=== PATIENT | female | born 1975 | race African-American/Black ===

== ENCOUNTER 2020-04-21 11:01 | Outpatient (REF) | payer MEDICARE, SELFPAY ==
--- NOTE | 2020-04-21 11:56 | XR_ITS ---
EXAMINATION: XR HIP, LEFT CLINICAL INFORMATION: Left hip pain COMPARISON: None TECHNIQUE: Two views of the left hip. Frontal view of the pelvis. FINDINGS: There is no acute fracture or dislocation. The right hip is well aligned. The left femoral head articulates appropriately with its acetabulum. There is severe superior joint space narrowing with [id number] appearance. Flattening of the femoral head with subchondral sclerosis present. Prominent osteophyte formation. The pelvic rim is intact. The sacroiliac joints and pubic symphysis are intact. The visualized bowel gas pattern is unremarkable. IMPRESSION: Severe degenerative changes of the left hip.
== END 2020-04-21 11:02 | disposition home or self-care (01) ==
LOC: HO.XRAY 11:01
PROVIDERS: PCP Internal Medicine Sports Medicine; Referring Provider Internal Medicine Sports Medicine; Visit Provider Orthopaedic Surgery
DX: M16.12 Unilateral primary osteoarthritis, left hip (principal); M25.552 Pain in left hip
CPT/HCPCS: 73502; 99214

== ENCOUNTER → 2020-06-30 13:14 | Outpatient (BNVA) | payer MEDICARE, MEDICAID, SELFPAY | PROVIDERS: Visit Provider Orthopaedic Surgery | DX: S82.64XA Nondisplaced fracture of lateral malleolus of right fibula, initial encounter for closed fracture (principal); S92.332A Displaced fracture of third metatarsal bone, left foot, initial encounter for closed fracture | CPT/HCPCS: 99202 ==

== ENCOUNTER 2020-08-10 13:27 | Outpatient (REF) | payer MEDICARE, MEDICAID, SELFPAY ==
--- NOTE | 2020-08-10 13:37 | XR_ITS ---
EXAMINATION: XR ANKLE, RIGHT XR FOOT, LEFT CLINICAL INFORMATION: Right ankle and left foot pain. Displaced fracture of left 3rd metatarsal. COMPARISON: None TECHNIQUE: AP, mortise, and lateral views of the right ankle. AP, oblique, and lateral views of the left foot. FINDINGS: RIGHT ANKLE: Subacute/chronic oblique fracture through the distal fibula with minimal displacement. Associated new bone/callus formation. The ankle mortise is maintained. Thin cortical fragment along the medial malleolus, likely representing a nondisplaced fracture fragment. Large dorsal calcaneal enthesophyte with thickening of the distal Achilles, likely indicating chronic tendinopathy. LEFT FOOT: Nondisplaced subacute/chronic-appearing fractures through the proximal metaphyses of the 3rd and 4th metatarsals. Mild new bone/callus formation. No acute fracture or dislocation. Plantar and dorsal calcaneal enthesophytes. XR/XR ankle RT min 3V IMPRESSION: RIGHT ANKLE: Subacute/chronic, oblique fracture through the distal fibula with new bone/callus formation. Probable nondisplaced avulsion fracture at the distal aspect of the medial malleolus. Large dorsal calcaneal spur with thickening of the distal Achilles tendon, indicating chronic tendinopathy. LEFT FOOT: Nondisplaced subacute/chronic-appearing fractures through the proximal metaphyses of the 3rd and 4th metatarsals. Mild new bone/callus formation. Plantar and dorsal calcaneal spurs.
--- NOTE | 2020-08-10 13:37 | XR_ITS ---
EXAMINATION: XR ANKLE, RIGHT XR FOOT, LEFT CLINICAL INFORMATION: Right ankle and left foot pain. Displaced fracture of left 3rd metatarsal. COMPARISON: None TECHNIQUE: AP, mortise, and lateral views of the right ankle. AP, oblique, and lateral views of the left foot. FINDINGS: RIGHT ANKLE: Subacute/chronic oblique fracture through the distal fibula with minimal displacement. Associated new bone/callus formation. The ankle mortise is maintained. Thin cortical fragment along the medial malleolus, likely representing a nondisplaced fracture fragment. Large dorsal calcaneal enthesophyte with thickening of the distal Achilles, likely indicating chronic tendinopathy. LEFT FOOT: Nondisplaced subacute/chronic-appearing fractures through the proximal metaphyses of the 3rd and 4th metatarsals. Mild new bone/callus formation. No acute fracture or dislocation. Plantar and dorsal calcaneal enthesophytes. XR/XR foot LT min 3V IMPRESSION: RIGHT ANKLE: Subacute/chronic, oblique fracture through the distal fibula with new bone/callus formation. Probable nondisplaced avulsion fracture at the distal aspect of the medial malleolus. Large dorsal calcaneal spur with thickening of the distal Achilles tendon, indicating chronic tendinopathy. LEFT FOOT: Nondisplaced subacute/chronic-appearing fractures through the proximal metaphyses of the 3rd and 4th metatarsals. Mild new bone/callus formation. Plantar and dorsal calcaneal spurs.
== END 2020-08-10 13:28 | disposition home or self-care (01) ==
LOC: HO.HOSX 13:27
PROVIDERS: Visit Provider Orthopaedic Surgery
DX: S82.64XD Nondisplaced fracture of lateral malleolus of right fibula, subsequent encounter for closed fracture with routine healing (principal); S92.332D Displaced fracture of third metatarsal bone, left foot, subsequent encounter for fracture with routine healing
CPT/HCPCS: 73610; 73630; 99212

== ENCOUNTER 2020-08-10 13:34 | Outpatient (REF) | payer MEDICARE, MEDICAID, SELFPAY | END 2020-08-10 13:35 | disposition home or self-care (01) | LOC: HO.HOSX 13:34 | PROVIDERS: Visit Provider Orthopaedic Surgery | DX: Z13.89 Encounter for screening for other disorder (principal) ==

== ENCOUNTER 2020-09-15 08:31 | Outpatient (REF) | payer MEDICARE, MEDICAID, SELFPAY | END 2020-09-15 08:32 | disposition home or self-care (01) | LOC: HO.HOSX 08:31 | PROVIDERS: Visit Provider Physician Assistant | DX: Z01.818 Encounter for other preprocedural examination (principal); M16.12 Unilateral primary osteoarthritis, left hip | CPT/HCPCS: 99212 ==

== ENCOUNTER 2021-08-25 09:10 | Outpatient (REF) | payer MEDICARE, MEDICAID, SELFPAY ==
--- NOTE | ~2021-08-25 | XR_ITS ---
EXAMINATION: XR PELVIS CLINICAL INFORMATION: Pain. Unable straighten to straighten left leg. COMPARISON: None TECHNIQUE: AP view of the pelvis. FINDINGS: The degenerated lumbar spine is partially included in the [id number]. The osseous pelvic ring is intact. There is chondrocalcinosis of the pubic symphysis. At the left hip, there is severe loss of the superior joint space with [id number] contact, mild flattening of the superior femoral head, subarticular sclerosis, subarticular cystic change and osteophyte formation. There is cortical buttressing of the femoral neck. No acute fractures are identified on this single view of the pelvis/hips. Small osteophytes are noted at the mildly degenerated right hip. XR/XR pelvis 1-2V IMPRESSION: * Severe osteoarthritis of the left hip. * Mild osteoarthritis of the right hip.
== END 2021-08-25 09:11 | disposition home or self-care (01) ==
LOC: HO.HOSX 09:10
PROVIDERS: Visit Provider Orthopaedic Surgery
DX: M16.12 Unilateral primary osteoarthritis, left hip (principal)
CPT/HCPCS: 72170; 99202

== ENCOUNTER 2021-10-01 09:56 | Outpatient (REF) | payer OTHER, MEDICAID, SELFPAY ==
--- NOTE | ~2021-10-01 | MM_ITS ---
EXAMINATION: MM SCREENING DIGITAL BREAST TOMOSYNTHESIS, BILATERAL CLINICAL INFORMATION: Screening. Asymptomatic. Age 45. No prior breast imaging. The lifetime risk of breast cancer based on the Tyrer-Cuzick Model is 7%. COMPARISON: None (current study represents initial baseline exam). TECHNIQUE: Digital breast tomosynthesis is performed in both the craniocaudal and mediolateral oblique views along with computer-aided detection (CAD). Synthesized 2D images are generated from the tomosynthesis. Additional right CC view is provided. FINDINGS: There are scattered areas of fibroglandular density (ACR BI-RADS breast composition Category b). There are no significant masses, abnormal calcifications, or other abnormalities. The axilla and skin contours are unremarkable. MM/MM tomosynthesis screening BI IMPRESSION: No mammographic evidence of malignancy. ASSESSMENT: BI-RADS 1: Negative RECOMMENDATION: Routine annual mammography screening. This patient's information was entered into a reminder system with a target due date for their next mammogram.
== END 2021-10-01 09:57 | disposition home or self-care (01) ==
LOC: HO.MAMMO 09:56
PROVIDERS: Visit Provider Nurse Practitioner Family
DX: Z12.31 Encounter for screening mammogram for malignant neoplasm of breast (principal)
CPT/HCPCS: 77063; 77067

== ENCOUNTER 2021-10-18 09:39 | Outpatient (REF) | payer OTHER, SELFPAY ==
[2021-10-21 10:57] LABS: HPV mRNA E6/E7 rflx Not Detected (Not Detected)
== END 2021-10-18 09:40 | disposition home or self-care (01) ==
LOC: HO.LAB 09:39
PROVIDERS: Visit Provider Obstetrics & Gynecology
DX: Z01.419 Encounter for gynecological examination (general) (routine) without abnormal findings (principal); Z11.51 Encounter for screening for human papillomavirus (HPV)
CPT/HCPCS: 87624; 88142

== ENCOUNTER → 2021-11-17 12:12 | Outpatient (BNVA) | payer OTHER, SELFPAY | PROVIDERS: PCP Nurse Practitioner Family; Visit Provider Physician Assistant | DX: M16.12 Unilateral primary osteoarthritis, left hip (principal) | CPT/HCPCS: 99212 ==

== ENCOUNTER 2021-11-23 | Outpatient (REF) | payer OTHER, SELFPAY ==
--- NOTE | 2021-11-02 10:12 | ECG_ITS ---
Test Reason : Z01.818 Blood Pressure : / mmHG Vent. Rate : 083 BPM Atrial Rate : 083 BPM P-R Int : 128 ms QRS Dur : 074 ms QT Int : 374 ms P-R-T Axes : 074 070 049 degrees QTc Int : 439 ms Normal sinus rhythm Normal ECG No previous ECGs available Referred By: Iman Smith Electronically Signed By:LALY BLAKE
[2021-11-02 10:29] LABS: MANUAL DIFF FLAG NO
[2021-11-02 11:49] LABS: INTERNATIONAL NORM RATIO 0.9 (0.9-1.1); Prothrombin Time 10.5 SEC (9.9-13.0)
[2021-11-02 11:52] LABS: Partial Thromboplastin Time 26.3 SEC (24.1-38.0)
[2021-11-02 11:54] LABS: Basophils Absolute Auto 0.1 X10*3/uL (0.0-0.2); Eosinophils Absolute Auto 0.4 X10*3/uL (0.0-0.4); Eosinophils Percent Auto 4.8 % (0-4); Hematocrit 42.8 % (37.0-47.0); Hemoglobin 14.1 g/dl (12.0-16.0); Imm Gran Abs Auto 0.03 X10*3/uL (0.00-0.03); Imm Gran Pct Auto 0.4 % (0.0-0.4); Lymphocytes Absolute Auto 2.9 X10*3/uL (1.2-4.9); Lymphocytes Percent Auto 34.9 % (20-40); Mean Corpuscular HGB Conc 32.9 g/dl (31.0-35.0); Mean Corpuscular Hemoglobin 30.6 pg (27.0-33.0); Mean Corpuscular Volume 92.8 fL (80.0-98.0); Mean Platelet Volume 10.6 fL (9.4-12.3); Monocytes Absolute Auto 0.6 X10*3/uL (0.1-1.2); Monocytes Percent Auto 6.8 % (2-11); Neutrophils Absolute Auto 4.3 x10*3/uL (2.0-8.3); Neutrophils Percent Auto 52.1 % (45-73); Platelet Count 258 X10*3/uL (160-400); Red Blood Count 4.61 X10*6/uL (4.20-5.50); Red Cell Distribution Width 13.8 % (11.0-16.0); White Blood Count 8.3 X10*3/uL (4.8-10.8)
[2021-11-02 12:43] LABS: Alanine Aminotransferase 12 U/L (0-31); Albumin Level 4.2 g/dL (3.5-5.0); Alkaline Phosphatase 86 U/L (39-117); Anion Gap 15 (12-20); Aspartate Amino Transferase 20 U/L (5-31); Bilirubin Total 0.4 mg/dL (0.0-1.0); Blood Urea Nitrogen 14 mg/dL (9-16); Carbon Dioxide 23 mmol/L (22-29); Chloride 106 mmol/L (96-108); Cholesterol 226 mg/dL; Estimated Glomerular Filt Rate > 60; Glucose Fasting 95 mg/dL (60-99); HDL Cholesterol 58 mg/dL; LDL Cholesterol Calculated 155 mg/dl; Sodium 139 mmol/L (135-145); Total Protein 7.2 g/dL (6.5-8.0); Triglycerides 65 mg/dL
[2021-11-09 12:06] VITALS: BP 104/70; PULSE 70; RESP 16; O2SAT 97; BMI 35.7
--- NOTE | 2021-11-09 12:30 | P.CONAN_ITS ---
HPI - Anesthesia Eval Consult details Narrative: Cx'd DOS +Tox 46yo F for Left Hip Total Replacement PCP cleared Hx polysube use - Daily naltrexone. To hold 72 hours preop. [facility] Active Problems Active Problems: All Active Problems (Updated 11/09/21 @ 12:24 by Hedy Wei RN) Fracture of right ankle, lateral malleolus (Acute) Fracture of third metatarsal bone of left foot (Acute) Osteoarthritis of left hip (Acute) Encounter to establish care (Acute) Primary localized osteoarthritis of left hip (Acute) Well woman exam (Acute) Pre-operative clearance (Acute) Hx of substance abuse (Acute) History of post traumatic stress disorder (Acute) Hx of bipolar disorder (Acute) Hepatitis (Acute) Past Medical History Medical History (Updated 11/09/21 @ 12:24 by Hedy Wei RN) Anxiety Arthritis Hepatitis History of post traumatic stress disorder Hx of bipolar disorder Hx of fracture of ankle Hx of fracture of foot Hx of substance abuse Family History Family History Other Mental health disorder Family history of problems with anesthesia: Unobtainable (Adopted) Surgical History Surgical History History of tonsillectomy History of tubal ligation History of Problems with Anesthesia: No Social History Social History Housing: Apartment Are you a primary long term care pharmacist to a significant other at home: No Do you presently have visiting nurse or other home services: No Alcohol intake: never Patient Tobacco Use Status: Current everyday Tobacco user Tobacco use type: Cigarette Cigarettes Per Day: 2 e-Cigarette/Vaping Use: Never Used Patient Interested in Nicotine Replacement: No Second Hand Smoke Exposure: Yes Use of substances other than those prescribed or required for medical reasons: Yes Substance Use Type: Former Substance User, Heroin and Marijuana Substance Use Type Other:: Hx of heroin and fentanyl, last used 1 year ago Substance Use Frequency: Daily Have you been hit, kicked, punched, or otherwise hurt by someone within the past year? If so, by whom?: No Spiritual Healthcare Practices: none Zoroastrianism Healthcare Practices: none Cultural Healthcare Practices: none Are you DNR?: No Advance Directives: No Advance Directives Information Provided: Yes Advance Directives on File: No Recently lost weight without trying: No Nutrition Risks: No Nutritional Risk Patient : No FDLMP: 2017 : No Poor oral hygiene: No service: No Current occupational status: employed and unemployed Current occupation: Right handed Cognitive needs: Yes (cane) Hearing needs: No Vision needs: Yes (glasses) Narrative Narrative: No recent illness No chest pain or sob with ADLs. Activity limited to pain Meds Allergies Allergy/AdvReac Type Severity Reaction Status Date / Time Penicillins [PENICILLINS] Allergy Unknown UNKNOWN Verified 11/08/21 14:50 Home Medications Medication Instructions Recorded Confirmed Last Taken Type naltrexone 50 mg tablet 50 mg PO DAILY 09/15/20 11/08/21 Unknown History clonidine HCl 0.1 mg tablet 0.2 mg PO DAILY 11/08/21 11/08/21 11/23/21 History gabapentin 300 mg capsule 2 cap PO BID PRN 11/23/21 11/08/21 11/23/21 History naltrexone microspheres 380 mg 380 mg IM Q28D 11/23/21 11/23/21 Unknown History intramuscular suspension,extended release (Vivitrol) quetiapine 100 mg tablet 1 tab PO DAILY 11/23/21 11/23/21 Unknown History Exam Exam Date and Time: November 09, 2021 1230 Height,Weight and Vital Signs: Height 5 ft 5 in Weight 97.522 kg Last Vital Signs Pulse 70 11/09/21 12:06 Resp 16 11/09/21 12:06 BP 104/70 11/09/21 12:06 Pulse Ox 97 11/09/21 12:06 Pertinent Lab Results Pertinent Lab Results: Laboratory Tests 11/02/21 11/02/21 11/02/21 10:27 10:27 10:27 WBC 8.3 RBC 4.61 Hgb 14.1 Hct 42.8 MCV 92.8 MCH 30.6 MCHC 32.9 RDW 13.8 Plt Count 258 MPV 10.6 Immature Gran % (Auto) 0.4 Neut % (Auto) 52.1 Lymph % (Auto) 34.9 Tama % (Auto) 6.8 Eos % (Auto) 4.8 H Baso % (Auto) 1.0 Lymph # (Auto) 2.9 Tama # (Auto) 0.6 Eos # (Auto) 0.4 Baso # (Auto) 0.1 Abs Immat Gran (auto) 0.03 Absolute Neuts (auto) 4.3 Absolute Nucleated RBC 0.000 Nucleated RBC % (auto) 0.0 PT 10.5 INR 0.9 APTT 26.3 Sodium 139 Potassium 5.0 Chloride 106 Carbon Dioxide 23 Anion Gap 15 BUN 14 Creatinine 0.85 Estim Creat Clear Calc TNP Estimated GFR > 60 Fasting Glucose 95 Calcium 10.0 Total Bilirubin 0.4 AST 20 ALT 12 Alkaline Phosphatase 86 Total Protein 7.2 Albumin 4.2 Triglycerides 65 Cholesterol 226 LDL Cholesterol, Calc 155 HDL Cholesterol 58 Narrative Narrative: EKG 10/2021 Vent. Rate : 083 BPM ? ? Atrial Rate : 083 BPM ?? P-R Int : 128 ms? QRS Dur : 074 ms ? ? QT Int : 374 ms ? ? ? P-R-T Axes : 074 070 049 degrees ?? QTc Int : 439 ms ? Normal sinus rhythm Normal ECG No previous ECGs available Airway Mallampati Class: I TM Dist: >3cm Neck ROM: Full Loose/Missing/Broken Teeth: No Heart: RRR Lungs: CTAB Assessment and Plan Assessment Anesthesia Assessment: Anesthesia Plan Discussed, Smoking Cess. Discussed and PAT Visit Final Anesthetic Review Family History of Problems with Anesthesia: Unobtainable (Adopted) History of Problems with Anesthesia: No
[2021-11-09 14:12] LABS: MRSA Nasal PCR NEGATIVE (Negative); SA Nasal PCR NEGATIVE (Negative)
[2021-11-23 06:41] VITALS: TEMP 36.7
[2021-11-23 06:47] LABS: COVID-19 Test Negative (Negative); IDNOW Serial# 9DB6401D
[2021-11-23 06:50] LABS: Amphetamine Screen Urine Not Detected (Not Detect); Barbiturates, Urine Not Detected (Not Detect); Benzodiazepines Screen Urine Not Detected (Not Detect); Cannabinoid Screen Urine POSITIVE (Not Detect); Cocaine Screen Urine Not Detected (Not Detect); Fentanyl, urine POSITIVE (Not Detect); Opiate Screen Urine Not Detected (Not Detect); Phencyclidine Screen Urine Not Detected (Not Detect)
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
[2021-11-23 07:07] LABS: MANUAL DIFF FLAG NO
[2021-11-23 07:10] LABS: Basophils Absolute Auto 0.1 X10*3/uL (0.0-0.2); Basophils Percent Auto 0.8 % (0-2); Eosinophils Absolute Auto 0.4 X10*3/uL (0.0-0.4); Hematocrit 43.8 % (37.0-47.0); Imm Gran Abs Auto 0.04 X10*3/uL (0.00-0.03); Imm Gran Pct Auto 0.4 % (0.0-0.4); Lymphocytes Absolute Auto 1.9 X10*3/uL (1.2-4.9); Mean Corpuscular HGB Conc 34.2 g/dl (31.0-35.0); Mean Corpuscular Hemoglobin 31.1 pg (27.0-33.0); Mean Corpuscular Volume 90.9 fL (80.0-98.0); Mean Platelet Volume 9.5 fL (9.4-12.3); Monocytes Absolute Auto 0.4 X10*3/uL (0.1-1.2); Monocytes Percent Auto 4.3 % (2-11); Neutrophils Absolute Auto 6.5 x10*3/uL (2.0-8.3); Neutrophils Percent Auto 70.5 % (45-73); Platelet Count 271 X10*3/uL (160-400); Red Blood Count 4.82 X10*6/uL (4.20-5.50); Red Cell Distribution Width 13.4 % (11.0-16.0); White Blood Count 9.3 X10*3/uL (4.8-10.8)
--- NOTE | 2021-11-23 09:29 | PHA.MEDREC ---
Pharmacy Consult ? Medication Reconciliation Pharmacy has completed the medication reconciliation.
== END 2021-11-23 06:18 ==
LOC: HO.PAT
PROVIDERS: Nurse Practitioner; Physician Assistant; PCP Nurse Practitioner Family; Visit Provider Orthopaedic Surgery
DX: Z01.818 Encounter for other preprocedural examination (principal); M16.12 Unilateral primary osteoarthritis, left hip; I10 Essential (primary) hypertension; E78.00 Pure hypercholesterolemia, unspecified; F19.11 Other psychoactive substance abuse, in remission; Z86.59 Personal history of other mental and behavioral disorders; Z20.822 Contact with and (suspected) exposure to COVID-19
CPT/HCPCS: 36415; 80053; 80061; 80307; 85014; 85018; 85025; 85610; 85730; 86850; 86900; 86901; 87635; 87640; 87641; 93005

== ENCOUNTER → 2022-06-12 08:41 | Outpatient (BNVA) | payer OTHER, SELFPAY | PROVIDERS: PCP Nurse Practitioner Family; Visit Provider Nurse Practitioner Family | DX: M16.12 Unilateral primary osteoarthritis, left hip (principal); M25.552 Pain in left hip; M25.561 Pain in right knee | CPT/HCPCS: 99202 ==

== ENCOUNTER 2022-06-29 10:22 | Day surgery (SDC) | payer OTHER, SELFPAY ==
[2022-06-26 09:20] VITALS: BMI 31.8
--- NOTE | ~2022-06-29 | FL_ITS ---
EXAMINATION: XR FLUOROSCOPY WITH IMAGES CLINICAL INFORMATION: Intra-articular injection left hip. Pain management. COMPARISON: Pelvic radiographs 08/25/2019 TECHNIQUE: Fluoroscopy Supervised By: Dr. Mihir Neumann. Fluoroscopy Time: 0.2 minutes. Cumulative Dose: 16.3 mGy. DAP: 4.44 Gycm2. Images: 1. FINDINGS: There is a spinal needle with tip at the superior lateral hip joint. There is contrast present in the joint capsule. No visible vascular communication. Prominent arthropathy hip joint again noted. FL/FL guidance in OR IMPRESSION: Fluoroscopy for pain management procedure.
[2022-06-29 10:27] VITALS: BP 100/51; PULSE 71; RESP 18; TEMP 36.3; O2SAT 98
[2022-06-29 10:48] LABS: Amphetamine Screen Urine Not Detected (Not Detect); Barbiturates, Urine Not Detected (Not Detect); Benzodiazepines Screen Urine Not Detected (Not Detect); Cannabinoid Screen Urine POSITIVE (Not Detect); Cocaine Screen Urine Not Detected (Not Detect); Fentanyl, urine Not Detected (Not Detect); Opiate Screen Urine Not Detected (Not Detect); Phencyclidine Screen Urine Not Detected (Not Detect)
--- NOTE | 2022-06-29 10:49 | PC.NURSE ---
pt sts had a sip of water at 0830
[2022-06-29] MEDS: Lactated Ringers 1,000 ML 100 ML IVCONT (11:13)
--- NOTE | 2022-06-29 11:31 | HO.ANESPROP2 ---
[facility] Active Problems Active Problems: All Active Problems (Updated 06/12/22 @ 09:14 by ABHISHEK Macdonald) Right knee pain (Acute) Left hip pain (Acute) Fracture of right ankle, lateral malleolus (Acute) Fracture of third metatarsal bone of left foot (Acute) Osteoarthritis of left hip (Acute) Encounter to establish care (Acute) Primary localized osteoarthritis of left hip (Acute) Well woman exam (Acute) Pre-operative clearance (Acute) Hx of substance abuse (Acute) History of post traumatic stress disorder (Acute) Hx of bipolar disorder (Acute) Hepatitis (Acute) Past Medical History Medical History Anxiety Arthritis Hepatitis History of post traumatic stress disorder Hx of bipolar disorder Hx of fracture of ankle Hx of fracture of foot Hx of substance abuse Family History Family History Other Mental health disorder Family history of problems with anesthesia: Unobtainable Surgical History Surgical History History of tonsillectomy History of tubal ligation History of Problems with Anesthesia: No Social History Social History Housing: Apartment Are you a primary health care recruiter to a significant other at home: No Do you presently have visiting nurse or other home services: No Alcohol intake: never Patient Tobacco Use Status: Current everyday Tobacco user Tobacco use type: Cigarette Cigarettes Per Day: 2 e-Cigarette/Vaping Use: Never Used Second Hand Smoke Exposure: Yes Substance Use Type: Former Substance User, Heroin and Marijuana Substance Use Type Other:: last use of heroin was november 2021 Are you DNR?: No Advance Directives: No Advance Directives Information Provided: Yes Nutrition Risks: No Nutritional Risk Patient : No service: No Current occupational status: employed and unemployed Current occupation: Right handed Cognitive needs: Yes (cane) Hearing needs: No Vision needs: Yes (glasses) Meds Allergies Allergy/AdvReac Type Severity Reaction Status Date / Time Penicillins [PENICILLINS] Allergy Unknown UNKNOWN Verified 06/12/22 08:50 Active Medications: Current Medications Albuterol Sulfate (Albuterol Sulfate (0.083%) 2.5 Mg/3 Ml Vial.Neb) 2.5 mg INHALE ONCE PRN PRN Reason: Shortness of Breath/Wheezing Lactated Ringer's (Lr) 1,000 mls @ 100 mls/hr IVCONT .Q10H MICHELLE Last Admin: 06/29/22 11:13 Dose: 100 mls/hr Home Medications Medication Instructions Recorded Confirmed Last Taken Type naltrexone 50 mg tablet 50 mg PO DAILY 09/15/20 11/08/21 Unknown History gabapentin 300 mg capsule 2 cap PO BID PRN Pain 11/23/21 11/08/21 11/23/21 History naltrexone microspheres 380 mg 380 mg IM Q28D 11/23/21 11/23/21 Unknown History intramuscular suspension,extended release (Vivitrol) buprenorphine 100 mg/0.5 mL mg subcut 06/12/22 Unknown History solution,exten.rel.subcutaneous syringe (Sublocade) buprenorphine 300 mg/1.5 mL 100 mg subcut QMONTH 06/29/22 06/29/22 06/27/22 History solution,exten.rel.subcutaneous syringe (Sublocade) Exam Exam Date and Time: June 29, 2022 1131 Height,Weight and Vital Signs: Height 5 ft 5 in Weight 86.636 kg Last Vital Signs Temp 97.4 F 06/29/22 10:27 Pulse 71 06/29/22 10:27 Resp 18 06/29/22 10:27 BP 100/51 L 06/29/22 10:27 Pulse Ox 98 06/29/22 10:27 O2 Del Method 06/29/22 10:27 Pertinent Lab Results Pertinent Lab Results: Laboratory Tests 06/29/22 10:25 Urine Opiates Screen Not Detected Urine Fentanyl Screen Not Detected Ur Barbiturates Screen Not Detected Ur Phencyclidine Scrn Not Detected Ur Amphetamines Screen Not Detected U Benzodiazepines Scrn Not Detected Urine Cocaine Screen Not Detected U Marijuana (THC) Screen POSITIVE H Airway Mallampati Class: II TM Dist: >3cm Neck ROM: Full Heart: rrr Lungs: clear Assessment and Plan Final Anesthetic Review Family History of Problems with Anesthesia: Unobtainable History of Problems with Anesthesia: No NPO: Yes ASA Class: II Final Preanesthetic Review: No Changes in Pt Med Stat, Meds/Allgs Chart Reviewed, Consent Obtained/Reviewed and Anes Risks/Benef Reviewed Patient Risk: Low Procedure Risk: Low Anesthetic Plan Anesthetic Plan: MAC: Disposition: Standard PACU
--- NOTE | 2022-06-29 11:36 | MHC.SHP ---
Pre-Procedural Eval Section A Date of Service: 06/29/22 Section B Chief Complaint: Pain in left hip,Unilateral primary osteoarthritis Details of Present Illness: as above Relevant Family History (Specify if Yes): No Relevant Social History: None Present Medications: see Short Stay Collaborative assessment Medical History: No relevant PMH History of Previous Operations: No relevant previous surgery Allergies: Allergies Allergy/AdvReac Type Severity Reaction Status Date / Time Penicillins [PENICILLINS] Allergy Unknown UNKNOWN Verified 06/12/22 08:50 Review of Systems Sugical H&P ROS: Negative: Constitution, Cardiovascular, Respiratory, Neurological, Psychiatric, Hem-Onc, Allergic/Immunologic, Gastrointestinal, Genitourinary, Musculoskeletal, Integumentary, Endocrine and Eyes/Ears/Nose/Throat Exam Surgical H&P Exam: Normal: HEENT, Normal: Heart, Normal: Lungs, Normal: Extremities, Normal: Abdomen, Normal: Skin and Normal: Neurological Plan Diagnosis/Plan: Unchanged I have reviewed the history and physical and performed a pertinent physical examination on my patient. No changes have occurred unless specified. Time Spent With Patient Time: Total time managing care of this patient today __5__ minutes.
--- NOTE | 2022-06-29 11:42 | W.PM.OPN ---
Operative Note Operative Note Date of Service: 06/29/22 Narrative: Intra-articular hip injection. ? - Informed consent was explained to the patient. All questions were explained and answered.? The patient was taken inside of the operating room where she was positioned right lateral decubitus on operating table..? ASA monitors applied and the patient was sedated. ? Time-out was performed delineating patient's name and date of , correct site, side, the nature of the procedure, patient's allergy, preoperative antibiotic if needed, need for DVT prophylaxis..? All operating room staff was participating in OR time-out procedure.? ? Right hip area of the patient was prepped with ChloraPrep and draped with sterile towels.? Sterilely draped C-arm was brought over the operating field and picture of left and right lateral views of the bilateral hip joints were delineated on the screen.? The smaller joint silhouette was chosen as the target.? Direction of the femoral neck was noted and the projection of that direction was delineated on the skin with skin markers.? Projection of the left trochanter to the skin was chosen as the initial needle insertion point.? After that the skin and subcutaneous tissues was anesthetized with 2% lidocaine 2.5 mL.? 22 gauge 5 in long needle was inserted through the skin and started to advance to the joint space under anterior posterior view.? When needle entered the capsule of the joint small amount of the contrast was injected delineating intra-articular space.? After that treatment solution containing 5 ml of ropivacaine 0.5% and 40 mg of Kenalog was injected into the joint.? The needle was withdrawn sterile dressing was applied. ? The patient tolerated procedure well.?
--- NOTE | 2022-06-29 11:45 | P.BOP_ITS ---
Brief Operative Note Date of Service: 06/29/22 Pre-op diagnosis: left hip arthritis Post-op diagnosis: same Procedure: left hip steroid injection Surgeon: Mihir Neumann MD Anesthesia: MAC Was an Electric Sealing Machine Operator used for this Procedure?: No Estimated blood loss (mL): 0 Condition: stable Disposition: PACU
[2022-06-29 12:23] VITALS: BP 90/51; PULSE 77; RESP 16; TEMP 37.2; O2SAT 98
[2022-06-29 12:38] VITALS: BP 101/64; PULSE 62; RESP 16; TEMP 37.5; O2SAT 96
== END 2022-06-29 13:03 | disposition home or self-care (01) ==
PROVIDERS: Nurse Practitioner; PCP Internal Medicine; Visit Provider Anesthesiology
PROC: (CPT 20610; principal; 2022-06-29 11:30)
DX: M25.552 Pain in left hip (principal); M16.12 Unilateral primary osteoarthritis, left hip; M25.561 Pain in right knee; Z79.899 Other long term (current) drug therapy; Z88.0 Allergy status to penicillin; F12.90 Cannabis use, unspecified, uncomplicated; F11.11 Opioid abuse, in remission; F17.210 Nicotine dependence, cigarettes, uncomplicated
CPT/HCPCS: 20610; 80307; J1100; J2250; J2795; J3301; Q9965; Q9967

== ENCOUNTER 2023-06-29 08:48 | Outpatient (AMB) | payer OTHER, SELFPAY ==
--- NOTE | 2023-06-29 09:22 | AM.OFFWIN_ITS ---
Intake Vital Signs 06/29/23 09:24 Height 5 ft 5 in Weight 198 lb BMI 32.9 BP 122/74 Blood Pressure Location Lt brachial Position Sitting Pulse 69 Pulse Source Pulse Oximeter Temp 99 F Temp Source Oral Intake Visit Reasons: EST/hand pain ([phone]) Intake Note: Pt is here today for had jaramillo started about a month ago, getting worse and worse. She jammed her left pinky, and carpal tunnel in both hands. Patient Tobacco Use Status: Current everyday Tobacco user Allergies Penicillins [PENICILLINS] Allergy (Unknown, Verified 06/29/23 09:22) UNKNOWN Do you need a note to return to daycare/school/sports/work: No HPI EST/hand pain ([phone]) HPI Details This is a 47 year old female patient who presents with several comp laints today. She reports she jammed her left pinky finger about 2 weeks ago, and she has had pain and swelling since then, and finger does not appear to be straight. She also reports sensation over the last few months of bilateral arm numbness in the morning. This takes about 10 minutes or so to resolve. Denies neck pain or injury. [facility] Medical History Anxiety Hx of fracture of foot Hx of fracture of ankle Hx of substance abuse Hepatitis History of post traumatic stress disorder Hx of bipolar disorder Arthritis Surgical History History of tonsillectomy History of tubal ligation Family History Other Mental health disorder Social History Housing: Apartment Are you a primary adult care provider to a significant other at home: No Do you presently have visiting nurse or other home services: No Alcohol intake: never Comment: needs new walker and toilet seat Patient Tobacco Use Status: Current everyday Tobacco user Tobacco use type: Cigarette Cigarettes Per Day: 2 e-Cigarette/Vaping Use: Never Used Second Hand Smoke Exposure: Yes Substance Use Type: Former Substance User, Heroin and Marijuana service: No Current occupational status: employed and unemployed Current occupation: Right handed Cognitive needs: Yes (cane) Hearing needs: No Vision needs: Yes (glasses) Female Reproductive History Menstrual Age of Menarche: 14 Review of Systems Const All systems reviewed & are unremarkable except as noted in HPI and below Physical Exam Vital Signs: Last Vital Signs Temp 99 F 06/29/23 09:24 Pulse 69 06/29/23 09:24 BP 122/74 06/29/23 09:24 BMI result Body Mass Index 32.9 Const General: cooperative and no acute distress Neck Neck: Yes no lymphadenopathy Resp Effort & Inspection: normal respiratory effort Auscultation: clear to auscultation bilaterally Cardio Palpation: normal PMI Rate: regular rate Rhythm: regular rhythm Back/Spine/Pelvis Cervical Spine: normal cervical lordosis and cervical ROM normal (negative spurling) Skin General skin exam: no rashes or lesions noted Extrem Other: +tinels sign b/l, normal shoulder/elbow/wrist ROM, no hand swelling Left upper extremity: hand (5th finger with ttp and swelling, primarily at PIP jt, limited ROM) Details: normal capillary refill Psych Mental Status: mental status grossly normal Assessment & Plan Assessment & Plan (1) Injury of finger of left hand: Code(s): S69.92XA - Unspecified injury of left wrist, hand and finger(s), initial encounter Qualifiers: Encounter type: initial encounter Qualified Code(s): S69.92XA - Unspecified injury of left wrist, hand and finger(s), initial encounter Plan: Left 5th finger swelling. Does not appear to have a fracture on XR. Will await official radiology read. Finger splinted in the office. Advised some ice application and NSAIDs as needed. (2) Bilateral arm numbness and tingling while sleeping: Code(s): R20.0 - Anesthesia of skin; R20.2 - Paresthesia of skin Plan: I suspect she has CTS. Symptoms do not appear to be radicular from c-spine. She has been a patient at [facility] for [facility] and would like to go back there. She is going to call to see if she can be seen, and if she needs a referral she will call office for this. Is a PCP patient of Dr. Conner. If symptoms worsen she should have further evaluation. She agrees to plan. Orders: Orders XR hand LT 2V Today S69.92XA - Unspecified injury of left wrist, hand and finger(s), initial encounter Coding Level of Care Code Est Pt Level 3 (82701) Diagnoses Injury of finger of left hand, initial encounter S69.92XA Encounter type: initial encounter Bilateral arm numbness and tingling while sleeping R20.0; R20.2
[2023-06-29 09:24] VITALS: BP 122/74; PULSE 69; TEMP 37.2; BMI 32.9
== END 2023-06-29 10:41 | disposition home or self-care (01) ==
PROVIDERS: PCP Internal Medicine; Visit Provider Nurse Practitioner Family
DX: S69.92XA Unspecified injury of left wrist, hand and finger(s), initial encounter (principal); R20.0 Anesthesia of skin; R20.2 Paresthesia of skin
CPT/HCPCS: 99213

== ENCOUNTER 2023-06-29 10:11 | Outpatient (REF) | payer OTHER, SELFPAY ==
--- NOTE | ~2023-06-29 | XR_ITS ---
EXAMINATION: XR HAND, LEFT CLINICAL INFORMATION: Left hand and wrist injury. COMPARISON: None available. TECHNIQUE: PA, lateral, and oblique views of the left hand. FINDINGS: There is no evidence of acute fracture or dislocation of the left hand or wrist. There is some edema seen along the medial aspect of the hand and wrist. There is a 1 mm calcific density seen at the lateral base of the fifth metacarpal which may be related to previous avulsion injury. Clinical correlation to site of pain is suggested. There is some mild spurring seen within the phalanges without narrowing of the joint spaces. XR/XR hand LT 2V IMPRESSION: Soft tissue swelling without definite acute fracture or dislocation identified. 1 mm calcific density about the base of the fifth proximal phalanx which may represent an old avulsion injury. Clinical correlation to this site is recommended.
== END 2023-06-29 10:12 | disposition home or self-care (01) ==
LOC: HO.HMGCX 10:11
PROVIDERS: PCP Internal Medicine; Visit Provider Nurse Practitioner Family
DX: S69.92XA Unspecified injury of left wrist, hand and finger(s), initial encounter (principal); X58.XXXA Exposure to other specified factors, initial encounter; Y93.9 Activity, unspecified; Y92.9 Unspecified place or not applicable; Y99.9 Unspecified external cause status
CPT/HCPCS: 73120

== ENCOUNTER 2023-07-31 10:57 | Outpatient (AMB) | payer OTHER, SELFPAY ==
[2023-07-31 11:07] VITALS: BP 120/62; PULSE 70; O2SAT 97; BMI 32.0
--- NOTE | 2023-07-31 11:07 | MHC.PC.OV ---
Vital Signs 07/31/23 11:07 Height 5 ft 5 in Weight 192 lb 6 oz BMI 32.0 BP 120/62 Blood Pressure Location Lt brachial Position Sitting Pulse 70 Pulse Source Pulse Oximeter Pulse Oximetry (%) 97 Oxygen Delivery Method Room Air Intake Visit Reasons: PE/ Med Clearance Form Bridge Manager Required: No Sensor Specialist: Not Required per policy Accompanied by: Self / Same As Patient Allergies Penicillins [PENICILLINS] Allergy (Unknown, Verified 07/31/23 11:40) UNKNOWN Medication List - Last Reconciled 07/31/23 by Eric Spence PA-C acamprosate 666 mg PO TID buprenorphine ER (Sublocade) 100 mg subcut QMONTH [Commode As directed] quetiapine 100 mg PO DAILY sertraline 50 mg PO DAILY walker walker with seat Tobacco use date assessed: 07/31/23 Dental Screening Dental Screen Date: 07/31/23 Did you have a dental visit in the last 12 months?: Yes Did you have a dental problem in the last 6 months where you did not have access to dental care?: No Was dental information given to patient?: Patient has dentist HPI PE/ Med Clearance Form HPI Details Patient is a 39-year-old female here today for a routine annual physical. This is the 1st time I am meeting this 47-year-old female with a past medical history significant for polysubstance use disorder, tobacco dependency, major depressive disorder, bipolar disorder. .. Bipolar Disorder: Followed by med provider at her Suboxone clinic in [place]. She continues on Zoloft and Seroquel and feels her mental health is stable.\.. .. History of polysubstance use disorder: Has not been clean from street drugs over last 2 years and is proud of this. She continues on Sublocade [address] in [facility]. Reviewed patient's labs and noted history of high cholesterol. Will recheck her fasting lipid panel. .. Colon cancer screening: Needs colon cancer screening-willing to do colonoscopy GREENHOUSE TRANSPLANTER: Does see a GREENHOUSE TRANSPLANTER at [facility] Vaccines: Up-to-date with COVID vaccine,flu vaccine, tetanus vaccine Mammogram: Needs up-to-date mammogram, will order [facility] Medical History Anxiety Hx of fracture of foot Hx of fracture of ankle Hx of substance abuse Hepatitis History of post traumatic stress disorder Hx of bipolar disorder Arthritis Surgical History History of tonsillectomy History of tubal ligation Family History Other Mental health disorder Social History (Updated 07/31/23 @ 11:52 by Eric Spence PA-C) Housing: Apartment Are you a primary daycare teacher to a significant other at home: No Do you presently have visiting nurse or other home services: No Alcohol intake: never Comment: needs new walker and toilet seat Patient Tobacco Use Status: Current everyday Tobacco user Tobacco use type: Cigarette Cigarettes Per Day: 2 e-Cigarette/Vaping Use: Never Used Second Hand Smoke Exposure: Yes Substance Use Type: Former Substance User and Marijuana service: No Current occupational status: employed and unemployed Current occupation: Right handed Cognitive needs: Yes (cane) Hearing needs: No Vision needs: Yes (glasses) Female Reproductive History Menstrual Age of Menarche: 14 Questionnaire PHQ-9 Over the last 2 weeks, how often have you been bothered by any of the following problems? 1. Little interest or pleasure in doing things: not at all 2. Feeling down, depressed, or hopeless: not at all 3. Trouble falling or staying asleep, or sleeping too much: not at all 4. Feeling tired or having little energy: not at all 5. Poor appetite or overeating: not at all 6. Feeling bad about yourself - or that you are a failure or have let yourself or your family down: not at all 7. Trouble concentrating on things, such as reading the newspaper or watching television: not at all 8. Moving or speaking so slowly that other people could have noticed. Or the opposite - being so fidgety or restless that you have been moving around a lot more than usual: not at all 9. Thoughts that you would be better off or of hurting yourself in some way: not at all Total score: 0 Depression Screening Interpretation: Negative Depression Screening Done: Yes 19354 - PHQ-9 Billing: Yes Source: Developed by Drs. Derrick Koehler, Shayy Lewis, Georges Patton and colleagues, with an educational tony from [employer]. Thrive Questionnaire Date Thrive assessed: 07/31/23 I am a: Patient What is your living situation today?: I have a steady place to live Within the past 12 months, did the food you bought not last and you didn't have the money to get more?: Never true Within the past 12 months, did you worry whether your food would run out before you got money to buy more?: Never true Do you have trouble paying for medicines?: No Do you have trouble getting transportation to medical appointments?: No Do you have trouble paying your heating and electricity bill?: No Do you have trouble taking care of your child, family member or friend?: No Do you have trouble with day-to-day activities such as bathing, preparing meals, shopping, managing finances, etc.?: No Are you currently unemployed and looking for a job?: No Are you interested in more education?: No Please select the resources that you would like help with: None THRIVE Score: 0 AUDIT C Alcohol Use Questionnaire (AUDIT-C) 1. How often do you have a drink containing alcohol?: Never Total Score: 0 MALGORZATA-7 AMB Questionnaire MALGORZATA-7 Date MALGORZATA - 7 assessed: 07/31/23 Feeling nervous, anxious, or on edge: 0 = Not at all Not being able to stop or control worryin = Not at all Worrying too much about different things: 0 = Not at all Trouble relaxin = Not at all Being so restless that it is hard to sit still: 0 = Not at all Becoming easily annoyed or irritable: 0 = Not at all Feeling afraid as if something awful might happen: 0 = Not at all Total MALGORZATA-7 score (0-4 normal; 5-9 mild; 10-14 moderate; 15-21 severe): 0 Source: Developed by Drs. Derrick Koehler, Shayy Lewis, Georges Patton and colleagues, with an educational tony from [employer]. MALGORZATA-7 Assessment Billing MALGORZATA-7 Assessment Tool: MALGORZATA-7 Assessment 83236 Review of Systems Const Denies body aches, Denies chills, Denies excessive sweating, Denies fatigue, Denies fever(s) and Denies headache(s) Eyes Denies blurry vision ENT Denies dysphagia, Denies vertigo, Denies dizziness, Denies headache(s), Denies hearing loss and Denies tinnitus Card Denies chest pain, Denies chest pain with activity, Denies syncope, Denies irregular heart rhythm and Denies dyspnea Resp Denies chest congestion, Denies cough, Denies hemoptysis, Denies dyspnea and Denies wheezing GI Denies abdominal pain, Denies melena, Denies hematochezia, Denies coffee ground emesis, Denies dysphagia, Denies diarrhea, Denies nausea and Denies vomiting Denies urinary frequency, Denies dysuria, Denies urinary hesitancy and Denies urinary urgency Musc Denies arthralgias, Denies limited range of motion, Denies muscle cramps and Denies muscle weakness Skin/Breast Denies rash and Denies skin ulcer Neuro Denies Abnormal speech present, Denies confusion, Denies vertigo, Denies dizziness, Denies syncope, Denies headache(s), Denies memory loss and Denies seizure-like activity Psych Denies anxiety, Denies confusion, Denies depression, Denies memory loss, Denies panic attacks and Denies paranoia Endo Denies excessive sweating, Denies fatigue, Denies flushing, Denies polydipsia and Denies polyuria Aller/Immun Denies wheezing Physical exam (Primary Care) Vital Signs: Last Vital Signs Pulse 70 07/31/23 11:07 BP 120/62 07/31/23 11:07 Pulse Ox 97 07/31/23 11:07 Oxygen Delivery Method Room Air 07/31/23 11:07 BMI result Body Mass Index 32.0 BMI Assessment/Plan discussion: High Tobacco/Smoking Status: Tobacco use Status Tobacco use date assessed 07/31/23 07/31/23 11:10 Patient Tobacco Use Status Current everyday Tobacco 07/31/23 11:52 Tobacco use type Cigarette 07/31/23 11:52 e-Cigarette/Vaping Use Never Used 07/31/23 11:52 Are you ready to quit: Yes Tobacco cessation counseling provided: Yes Items discussed: Nicotine replacement Relapse Prevention: discussed the importance of a supportive environment, discussed negative mood or depression after quitting, weight gain after smoking is common and discussed dietary, exercise and/or lifestyle changes Number of minutes spent counselin CPT code: 43360 - 4-10 Minutes PHQ-9: PHQ-9 Score PHQ-9: Total score 0 07/31/23 13:12 Depression Screening Interpretation: Negative Thrive Assessment: Date of Thrive Assessment Date Thrive assessed 07/31/23 07/31/23 11:10 Const General: cooperative, comfortable, no acute distress, alert and awake; No confusion Orientation/consciousness: oriented to person, oriented to place, patient oriented x3 and No confusion HENMT Head: Yes normocephalic Ears: external ears normal and TM's normal bilaterally Face and sinus: No sinus tenderness Mouth: Normal oral and palatal mucosa present and tongue normal Teeth and gingiva: dentition normal and gingiva normal Throat: Yes posterior oropharynx normal, Yes tonsils normal and Yes uvula midline Eyes Conjunctivae: conjunctivae normal Sclerae: sclerae normal Pupils: Equal, round and reactive pupils present EOM: EOMs intact bilaterally Direct Ophthalmoscopy: No no photophobia Neck Neck: Yes no lymphadenopathy, No tender and Yes no JVD Thyroid: Thyroid normal Carotids: no bruits Chest Chest palpation & inspection: no tenderness Resp Effort & Inspection: normal respiratory effort, no audible wheezes, not labored and no stridor Auscultation: no crackles, no rales, no rhonchi and no wheezes Cardio Jugular venous distension: no JVD Rate: regular rate, not bradycardic and not tachycardic Rhythm: regular rhythm Bruits: no carotid bruits Peripheral pulses: Peripheral pulses 2+ throughout GI Inspection: Yes normal to inspection, No abdominal wall ecchymosis and No visible herniation Palpation (GI): Soft to palpation, nontender, no guarding, not rigid and No hepatosplenomegaly present Auscultation: normoactive bowel sounds General: Yes no CVA tenderness Back/Spine/Pelvis Back: no CVA tenderness and No back tenderness Cervical Spine: cervical ROM normal Thoracic/Lumbar Spine: thoracic and lumbar spine normal to inspection, straight leg raise negative bilaterally, No thoraco-lumbar ROM limited and No lumbar spinal tenderness Skin Lesions: no lesions Rashes: no rashes Wounds: no wounds Neuro General: oriented to person, oriented to place, patient oriented x3, CN's II-XI intact bilaterally and No confusion Cranial nerves: Yes Equal, round and reactive pupils present and Yes Normal accommodation reflex present Cognition (Neuro): normal cognition Speech: No Abnormal speech present Gait exam (Neuro): Normal gait present Motor exam (neuro): 5/5 motor strength present throughout Extrem Right upper extremity: full ROM; no cyanosis Left upper extremity: full ROM; no cyanosis Right lower extremity: no edema Left lower extremity: no edema Psych Appearance: grossly normal Mental Status: mental status grossly normal Affect: normal affect Attitude: cooperative Thought process: Normal thought process present Assessment and Plan Assessment & Plan (1) Annual physical exam: Code(s): Z00.00 - Encounter for general adult medical examination without abnormal findings (2) Need for MMR vaccine: Code(s): Z23 - Encounter for immunization (3) Screening-pulmonary TB: Code(s): Z11.1 - Encounter for screening for respiratory tuberculosis (4) Hx of bipolar disorder: Code(s): Z86.59 - Personal history of other mental and behavioral disorders Plan: Continues to follow a mental health med provider at her Suboxone clinic. She feels her mental health is fairly stable on the current (5) Hx of substance abuse: Code(s): F19.11 - Other psychoactive substance abuse, in remission Plan: Mental health medications. Has been sober from street opiates over the last 2 years. Continues to go to a Suboxone clinic and gets seborrheic late injections. (6) Screening for diabetes mellitus (DM): Code(s): Z13.1 - Encounter for screening for diabetes mellitus (7) Tobacco dependence: Code(s): F17.200 - Nicotine dependence, unspecified, uncomplicated Plan: She does understand she needs to quit smoking. She is interested in nicotine patches to help her completely quit. (8) HLD (hyperlipidemia): Code(s): E78.5 - Hyperlipidemia, unspecified Qualifiers: Hyperlipidemia type: mixed hyperlipidemia Qualified Code(s): E78.2 - Mixed hyperlipidemia Plan: Does have a history of high total cholesterol. Will recheck fasting lipid panel to ensure appropriate LDL. Goal LDL to be below 160 (9) Colon cancer screening: Code(s): Z12.11 - Encounter for screening for malignant neoplasm of colon Plan: Patient interested colonoscopy (10) Breast cancer screening: Code(s): Z12.39 - Encounter for other screening for malignant neoplasm of breast Qualifiers: Breast cancer screening modality: mammogram Qualified Code(s): Z12.31 - Encounter for screening mammogram for malignant neoplasm of breast Plan: Patient needs up-to-date mammogram (11) Obese: Code(s): E66.9 - Obesity, unspecified Qualifiers: Obesity type: due to excess calories Obesity classification: adult class 1 (BMI 30 - 34.9) Serious obesity comorbidity presence: without serious comorbidity Body mass index: BMI 32.0-32.9 Qualified Code(s): E66.09 - Other obesity due to excess calories; Z68.32 - Body mass index [BMI] 32.0-32.9, adult Plan: Patient does understand her BMI is over 30 will be working on being more physically active and adapting to better eating habits to reduce her weight. Orders: Orders T Spot TB 07/31/23 Z11.1 - Encounter for screening for respiratory tuberculosis Rubeola IgG (Measles) 07/31/23 Z23 - Encounter for immunization Rubella IgG Antibody 07/31/23 Z23 - Encounter for immunization Comprehensive Omro. Panel Fast 07/31/23 Z13.1 - Encounter for screening for diabetes mellitus Mumps Virus IgG Antibody 07/31/23 Z23 - Encounter for immunization Varicella IgG Antibody 07/31/23 Z23 - Encounter for immunization Lipid Panel 07/31/23 E78.2 - Mixed hyperlipidemia MM screening mammo BI 07/31/23 Z12.31 - Encounter for screening mammogram for malignant neoplasm of breast Referrals Gastroenterology Referral Z12.11 - Encounter for screening for malignant neoplasm of colon Medications: New nicotine 1 patch transdermal Q24H 14 days 14 ea 0RF F17.200 - Nicotine dependence, unspecified, uncomplicated nicotine 1 patch transdermal DAILY 14 days 14 ea 0RF F17.200 - Nicotine dependence, unspecified, uncomplicated Coding Level of Care Code Est Pt Prev Care 40-64y(87617) Diagnoses Annual physical exam Z00.00 Need for MMR vaccine Z23 Screening-pulmonary TB Z11.1 Hx of bipolar disorder Z86.59 Hx of substance abuse F19.11 Screening for diabetes mellitus (DM) Z13.1 Tobacco dependence F17.200 Mixed hyperlipidemia E78.2 Hyperlipidemia type: mixed hyperlipidemia Colon cancer screening Z12.11 Encounter for screening mammogram for malignant neoplasm of breast Z12.31 Breast cancer screening modality: mammogram Class 1 obesity due to excess calories without serious comorbidity with body mass index (BMI) of 32.0 to 32.9 in adult E66.09; Z68.32 Obesity type: due to excess calories Obesity classification: adult class 1 (BMI 30 - 34.9) Serious obesity comorbidity presence: without serious comorbidity Body mass index: BMI 32.0-32.9 Additional Codes MALGORZATA-7 Assessment Billing - MALGORZATA-7 Assessment Tool: MALGORZATA-7 Assessment [id number] ([id number]) Vital Signs *Quality* - CPT code: 42902 - 4-10 Minutes ([id number])
== END 2023-07-31 12:09 | disposition home or self-care (01) ==
PROVIDERS: PCP Internal Medicine; Visit Provider Physician Assistant
DX: Z00.00 Encounter for general adult medical examination without abnormal findings (principal); F19.11 Other psychoactive substance abuse, in remission; Z11.1 Encounter for screening for respiratory tuberculosis; Z86.59 Personal history of other mental and behavioral disorders; Z13.1 Encounter for screening for diabetes mellitus; F17.210 Nicotine dependence, cigarettes, uncomplicated; E78.2 Mixed hyperlipidemia; E66.09 Other obesity due to excess calories; Z68.32 Body mass index [BMI] 32.0-32.9, adult
CPT/HCPCS: 99396; 99406

== ENCOUNTER 2024-08-20 14:55 | Outpatient (AMB) | payer OTHER, MEDICARE, SELFPAY ==
--- NOTE | 2024-08-20 15:04 | MHC.PC.OV ---
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 Accompanied by: Self / Same As Patient Allergies Penicillins [PENICILLINS] Allergy (Unknown, Verified 08/20/24 15:19) UNKNOWN Medication List - Last Reconciled 08/20/24 by Eric Spence PA-C [Commode As directed] quetiapine 100 mg PO DAILY sertraline 50 mg PO DAILY walker walker with seat Tobacco use date assessed: 08/20/24 Dental Screening Dental Screen Date: 08/20/24 Did you have a dental visit in the last 12 months?: Yes Did you have a dental problem in the last 6 months where you did not have access to dental care?: No Was dental information given to patient?: Patient has dentist HPI annual exam HPI Details Patient is a 48-year-old female here today for a routine annual physical. This is the 2nd time I am meeting this 48-year-old female with a past medical history significant for polysubstance use disorder, tobacco dependency, major depressive disorder, bipolar disorder. Concern--> patient reports having some fecal incontinence after she defecates. She denies any bright red blood or black tarry stool. She has no pain in her rectum. Of note has had 4 full-term pregnancies --> she also reports having bilateral hand pain, cramping in numbness particularly at night that wakes her up from sleep. .. Bipolar Disorder: Followed by med provider at her Suboxone clinic in [place]. She continues on Zoloft and Seroquel and feels her mental health is stable.\.. .. History of polysubstance use disorder: She has not been sober from illicit drug use for few years now .. Smoker: Patient does understand she needs to quit smoking she has cut down her smoking quite a bit over the last several years. She is not interested in medication or nicotine replacement at this time. Reviewed patient's labs and noted history of high cholesterol. Will recheck her fasting lipid panel. .. Colon cancer screening: Needs colon cancer screening-willing to do colonoscopy OUTREACH CONSULTANT: Does see a OUTREACH CONSULTANT at [facility]- Dr Louise COTTO with PAP Vaccines: Up-to-date with COVID vaccine,flu vaccine, tetanus vaccine, Declines Flu vaccine , NEED PCV Mammogram: Needs up-to-date mammogram, will order [facility] Medical History Anxiety Hx of fracture of foot Hx of fracture of ankle Hx of substance abuse Hepatitis History of post traumatic stress disorder Hx of bipolar disorder Arthritis Surgical History History of tonsillectomy History of tubal ligation Family History Other Mental health disorder Social History (Updated 08/20/24 @ 15:32 by Eric Spence PA-C) Housing: Apartment Are you a primary career agent to a significant other at home: No Do you presently have visiting nurse or other home services: No Alcohol intake: current Alcohol intake frequency: does not drink Comment: needs new walker and toilet seat Patient Tobacco Use Status: Current everyday Tobacco user Tobacco use type: Cigarette Cigarettes Per Day: 2 e-Cigarette/Vaping Use: Never Used Second Hand Smoke Exposure: Yes Substance Use Type: Former Substance User and Marijuana service: No Current occupational status: employed and unemployed Current occupation: Right handed Cognitive needs: Yes (cane) Hearing needs: No Vision needs: Yes (glasses) Female Reproductive History Menstrual Age of Menarche: 14 Questionnaire PHQ-9 Over the last 2 weeks, how often have you been bothered by any of the following problems? 1. Little interest or pleasure in doing things: not at all 2. Feeling down, depressed, or hopeless: not at all 3. Trouble falling or staying asleep, or sleeping too much: not at all 4. Feeling tired or having little energy: not at all 5. Poor appetite or overeating: not at all 6. Feeling bad about yourself - or that you are a failure or have let yourself or your family down: not at all 7. Trouble concentrating on things, such as reading the newspaper or watching television: not at all 8. Moving or speaking so slowly that other people could have noticed. Or the opposite - being so fidgety or restless that you have been moving around a lot more than usual: not at all 9. Thoughts that you would be better off or of hurting yourself in some way: not at all Total score: 0 Depression Screening Interpretation: Negative Depression Screening Done: Yes 21279 - PHQ-9 Billing: Yes Source: Developed by Drs. Derrick Koehler, Shayy Lewis, Georges Patton and colleagues, with an educational tony from [employer]. Thrive Questionnaire Date Thrive assessed: 08/20/24 I am a: Patient What is your living situation today?: I have a steady place to live Within the past 12 months, did the food you bought not last and you didn't have the money to get more?: I choose not to answer this question Within the past 12 months, did you worry whether your food would run out before you got money to buy more?: I choose not to answer this question Do you have trouble paying for medicines?: No Do you have trouble getting transportation to medical appointments?: No Do you have trouble paying your heating and electricity bill?: No Do you have trouble taking care of your child, family member or friend?: No Do you have trouble with day-to-day activities such as bathing, preparing meals, shopping, managing finances, etc.?: I choose not to answer this question Are you currently unemployed and looking for a job?: I choose not to answer this question Are you interested in more education?: I choose not to answer this question Please select the resources that you would like help with: None Currently or been in a relationship where the following occur: I choose not to answer THRIVE Score: 0 AUDIT C Alcohol Use Questionnaire (AUDIT-C) 1. How often do you have a drink containing alcohol?: Monthly or less 2. How many drinks containing alcohol do you have on a typical day when you are drinking?: 1 or 2 3. How often do you have six or more drinks on one occasion?: Less than monthly Total Score: 2 MALGORZATA-7 AMB Questionnaire MALGORZATA-7 Date MALGORZATA - 7 assessed: 08/20/24 Feeling nervous, anxious, or on edge: 0 = Not at all Not being able to stop or control worryin = Not at all Worrying too much about different things: 0 = Not at all Trouble relaxin = Not at all Being so restless that it is hard to sit still: 0 = Not at all Becoming easily annoyed or irritable: 0 = Not at all Feeling afraid as if something awful might happen: 0 = Not at all Total MALGORZATA-7 score (0-4 normal; 5-9 mild; 10-14 moderate; 15-21 severe): 0 Source: Developed by Drs. Derrick Koehler, Shayy Lewis, Georges Patton and colleagues, with an educational tony from [employer]. MALGORZATA-7 Assessment Billing MALGORZATA-7 Assessment Tool: MALGORZATA-7 Assessment 72823 Review of Systems Const Denies body aches, Denies chills, Denies excessive sweating, Denies fatigue, Denies fever(s) and Denies headache(s) Eyes Denies blurry vision ENT Denies dysphagia, Denies vertigo, Denies dizziness, Denies headache(s), Denies hearing loss and Denies tinnitus Card Denies chest pain, Denies chest pain with activity, Denies syncope, Denies irregular heart rhythm and Denies dyspnea Resp Denies chest congestion, Denies cough, Denies hemoptysis, Denies dyspnea and Denies wheezing GI Denies abdominal pain, Denies melena, Denies hematochezia, Denies coffee ground emesis, Denies dysphagia, Denies diarrhea, Denies nausea and Denies vomiting Denies urinary frequency, Denies dysuria, Denies urinary hesitancy and Denies urinary urgency Musc Denies arthralgias, Denies limited range of motion, Denies muscle cramps and Denies muscle weakness Skin/Breast Denies rash and Denies skin ulcer Neuro Denies Abnormal speech present, Denies confusion, Denies vertigo, Denies dizziness, Denies syncope, Denies headache(s), Denies memory loss and Denies seizure-like activity Psych Denies anxiety, Denies confusion, Denies depression, Denies memory loss, Denies panic attacks and Denies paranoia Endo Denies excessive sweating, Denies fatigue, Denies flushing, Denies polydipsia and Denies polyuria Aller/Immun Denies wheezing Physical exam (Primary Care) Vital Signs: Last Vital Signs Pulse 75 08/20/24 15:05 BP 108/72 08/20/24 15:05 Pulse Ox 97 08/20/24 15:05 Oxygen Delivery Method Room Air 08/20/24 15:05 BMI result Body Mass Index 30.9 Tobacco/Smoking Status: Tobacco use Status Tobacco use date assessed 08/20/24 08/20/24 15:17 Patient Tobacco Use Status Current everyday Tobacco 08/20/24 15:32 Tobacco use type Cigarette 08/20/24 15:32 e-Cigarette/Vaping Use Never Used 08/20/24 15:32 Are you ready to quit: No Tobacco cessation counseling provided: Yes Items discussed: Nicotine replacement and QuitWorks Relapse Prevention: discussed the importance of a supportive environment, discussed negative mood or depression after quitting, weight gain after smoking is common and discussed dietary, exercise and/or lifestyle changes Number of minutes spent counselin CPT code: 31799 - 4-10 Minutes PHQ-9: PHQ-9 Score PHQ-9: Total score 0 08/25/24 07:20 Depression Screening Interpretation: Negative Thrive Assessment: Date of Thrive Assessment Date Thrive assessed 08/20/24 08/20/24 15:07 Currently or been in a relationship where the following occur: I choose not to answer Const General: cooperative, comfortable, no acute distress, alert and awake; No confusion Orientation/consciousness: oriented to person, oriented to place, patient oriented x3 and No confusion HENMT Head: Yes normocephalic Ears: external ears normal and TM's normal bilaterally Face and sinus: No sinus tenderness Mouth: Normal oral and palatal mucosa present and tongue normal Teeth and gingiva: dentition normal and gingiva normal Throat: Yes posterior oropharynx normal, Yes tonsils normal and Yes uvula midline Eyes Conjunctivae: conjunctivae normal Sclerae: sclerae normal Pupils: Equal, round and reactive pupils present EOM: EOMs intact bilaterally Direct Ophthalmoscopy: No no photophobia Neck Neck: Yes no lymphadenopathy, No tender and Yes no JVD Thyroid: Thyroid normal Carotids: no bruits Chest Chest palpation & inspection: no tenderness Resp Effort & Inspection: normal respiratory effort, no audible wheezes, not labored and no stridor Auscultation: no crackles, no rales, no rhonchi and no wheezes Cardio Jugular venous distension: no JVD Rate: regular rate, not bradycardic and not tachycardic Rhythm: regular rhythm Bruits: no carotid bruits Peripheral pulses: Peripheral pulses 2+ throughout GI Inspection: Yes normal to inspection, No abdominal wall ecchymosis and No visible herniation Palpation (GI): Soft to palpation, nontender, no guarding, not rigid and No hepatosplenomegaly present Auscultation: normoactive bowel sounds General: Yes no CVA tenderness Back/Spine/Pelvis Back: no CVA tenderness and No back tenderness Cervical Spine: cervical ROM normal Thoracic/Lumbar Spine: thoracic and lumbar spine normal to inspection, straight leg raise negative bilaterally, No thoraco-lumbar ROM limited and No lumbar spinal tenderness Skin Lesions: no lesions Rashes: no rashes Wounds: no wounds Neuro General: oriented to person, oriented to place, patient oriented x3, CN's II-XI intact bilaterally and No confusion Cranial nerves: Yes Equal, round and reactive pupils present and Yes Normal accommodation reflex present Cognition (Neuro): normal cognition Speech: No Abnormal speech present Gait exam (Neuro): Normal gait present Motor exam (neuro): 5/5 motor strength present throughout Extrem Right upper extremity: full ROM; no cyanosis Left upper extremity: full ROM; no cyanosis Right lower extremity: no edema Left lower extremity: no edema Psych Appearance: grossly normal Mental Status: mental status grossly normal Affect: normal affect Attitude: cooperative Thought process: Normal thought process present Coding Level of Care Code Est Pt Prev Care 40-64y(13373) Diagnoses Annual physical exam Z00.00 Paresthesia of hand, bilateral R20.2 Mixed hyperlipidemia E78.2 Hyperlipidemia type: mixed hyperlipidemia Tobacco dependence F17.200 Screening-pulmonary TB Z11.1 MDD (major depressive disorder), recurrent episode, moderate F33.1 PTSD (post-traumatic stress disorder) F43.10 Bipolar 1 disorder F31.9 Hx of substance abuse F19.11 Fecal incontinence due to anorectal disorder K62.9; R15.9 Additional Codes MALGORZATA-7 Assessment Billing - MALGORZATA-7 Assessment Tool: MALGORZATA-7 Assessment 98614 ([id number]) PHQ-9 - 46549 - PHQ-9 Billing: Yes ([id number]) Vital Signs *Quality* - CPT code: 18973 - 4-10 Minutes ([id number]) Assessment & Plan Assessment & Plan (1) Annual physical exam: Code(s): Z00.00 - Encounter for general adult medical examination without abnormal findings Category: Medical Plan: as per HPI (2) Paresthesia of hand, bilateral: Code(s): R20.2 - Paresthesia of skin Category: Medical Plan: Patient reports bilateral hand paresthesias. Will send for EMG bilateral upper extremities to evaluate for median nerve neuropathy (3) HLD (hyperlipidemia): Code(s): E78.5 - Hyperlipidemia, unspecified Category: Medical Qualifiers: Hyperlipidemia type: mixed hyperlipidemia Qualified Code(s): E78.2 - Mixed hyperlipidemia Plan: Patient has a history of high cholesterol. Will recheck fasting lipid panel to evaluate for cholesterol. Goal LDL to be below 130 (4) Tobacco dependence: Code(s): F17.200 - Nicotine dependence, unspecified, uncomplicated Category: Medical Plan: As above patient does need to quit smoking and does understand this. She is not interested in medications or nicotine replacement at this time. (5) Screening-pulmonary TB: Code(s): Z11.1 - Encounter for screening for respiratory tuberculosis Category: Medical Plan: Needs screening tuberculosis for her employer (6) MDD (major depressive disorder), recurrent episode, moderate: Code(s): F33.1 - Major depressive disorder, recurrent, moderate Category: Medical Plan: Patient's PHQ-9 score -0. She does have history of depression. She continues on sertraline and Seroquel with good effect. (7) PTSD (post-traumatic stress disorder): Code(s): F43.10 - Post-traumatic stress disorder, unspecified Category: Medical Plan: As above patient does have history of PTSD. Continues on sertraline with good effect on reducing anxious symptoms. (8) Bipolar 1 disorder: Code(s): F31.9 - Bipolar disorder, unspecified Category: Medical Plan: As above (9) Hx of substance abuse: Code(s): F19.11 - Other psychoactive substance abuse, in remission Category: Medical Plan: Patient now sober from illicit street drugs over the last several years. She continues to work full-time (10) Fecal incontinence due to anorectal disorder: Code(s): K62.9 - Disease of anus and rectum, unspecified; R15.9 - Full incontinence of feces Category: Medical Plan: As per HPI patient does report having some fecal incontinence particularly after defecating. She often has fecal residue. She denies any black tarry stool or blood in stool. She does not have any rectal pain. Orders: Orders Lipid Panel 08/20/24 E78.2 - Mixed hyperlipidemia Comprehensive [place]. Panel Fast 08/20/24 Z13.1 - Encounter for screening for diabetes mellitus Complete Blood Count no Diff 08/20/24 Z13.1 - Encounter for screening for diabetes mellitus NE electromyogram (EMG) 08/20/24 R20.2 - Paresthesia of skin T Spot TB 08/20/24 Z11.1 - Encounter for screening for respiratory tuberculosis Referrals General Surgery Referral K62.9 - Disease of anus and rectum, unspecified, R15.9 - Full incontinence of feces
[2024-08-20 15:05] VITALS: BP 108/72; PULSE 75; O2SAT 97; BMI 30.9
--- OUTSIDE RECORDS SUMMARY | 2024-08-20 16:08 | XMS_ITS | Clinical Summary ---
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 Name Role Phone Unavailable Primary Care Provider Unavailabl e Allergies Active Allergy Reactions Criticality Noted Date Comments Penicillins 12/16/2019 Medications Medication Sig Dispensed Refills Start Date End Date Status NARCAN 4 MG/0.1ML LIQD USE 1 SPARY DIRECTED INTRANASAL PRN 0 12/10/2019 Active naltrexone (DEPADE) 50 MG tablet TK 1 T PO QD 0 12/09/2019 Active ondansetron (ZOFRAN) 4 MG tablet TK 1 T PO Q 8 H PRF NAUSEA 0 11/01/2019 Active pantoprazole (PROTONIX) 40 MG tablet TK 1 T PO D 0 11/01/2019 Active sertraline (ZOLOFT) 50 MG tablet TK 1 T PO QD 0 10/24/2019 Active Active Problems Problem Noted Date Diagnosed Date Arthritis of left hip 03/02/2022 Avascular necrosis 03/02/2022 Social History Tobacco Use Types Packs/Day Years Used Date Smoking Tobacco: Never Assessed Sex and Gender Information Value Date Recorded Sex Assigned at Not on file Gender Identity Not on file Sexual Orientation Not on file Job Start Date Occupation Industry Not on file Not on file Not on file Last Filed Vital Signs Vital Sign Reading Time Taken Comments Blood Pressure - - Pulse - - Temperature - - Respiratory Rate - - Oxygen Saturation - - Inhaled Oxygen Concentration - - Weight 98.4 kg (217 lb) 03/02/2022 2:02 PM EDT Height 165.1 cm (5' 5 ) 03/02/2022 2:02 PM EDT Body Mass Index 36.11 03/02/2022 2:02 PM EDT Plan of Treatment Health Maintenance Due Date Last Done Comments Hepatitis C Screening 1974 COVID-19 Vaccine (#1) 04/14/1975 Pneumococcal Vaccine (1 of 2 - PCV) 1980 Depression Screening 1986 BMI Counseling 1992 Preventative Health Evaluation 1992 DTap / Tdap / Td (1 - Tdap) 1993 Cervical Cancer Screening (P ap Smear) 10/14/1995 Colon Cancer Screening (Colonoscopy) 10/14/2019 Hepatitis B Vaccines (2 of 3 - Hep B Twinrix 3-dose series) 07/15/2020 06/17/2020 Influenza Vaccine (#1) 2024 RSV Ped < 20 months Aged Out No longe r eligible based on patient's age to complete this topic
--- OUTSIDE RECORDS SUMMARY | 2024-08-20 16:08 | XMS_ITS | Clinical Summary ---
Author Organization [facility] Address [address] [place] [address] Phone Care Team Providers Care [employer] Name Role Phone Alicia Lilly MD Primary Care Provider [phone] Allergies Active Allergy Reactions Criticality Noted Date Comments Penicillins Hives 12/16/2019 Medications QUEtiapine (SEROquel) 300 mg tablet Take 1-2 Tabs by mouth every evening. 1 Active gabapentin (NEURONTIN) 300 mg capsule Take 2 Caps by mouth 2 times daily. 1 Active methocarbamoL (ROBAXIN) 750 mg tablet Take 2 tablets (1,500 mg total) by mouth 4 (four) times a day if needed for muscle spasms for up to 10 days. 40 each 4 Active lidocaine (LIDODERM) 5 % patch Apply 1 patch topically 1 (one) time each day. Remove & discard patch within 12 hours or as directed by . 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 Treatment started 02/11/2020 with Epclusa Take 1 tab daily for 12 weeks. End date 05/05/2020. Dx ~05/2019. 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 12/16/2019 PTSD (post-traumatic stress disorder) 12/24/2019 Encounters Date Type Department Care Team Description 07/05/2024 4:03 AM EST - 07/05/2024 7:45 AM [facility] Emergency [address] [place] [address] Eliceo Schmitz MD Acute exacerbation of chronic low back pain (Primary Dx) Discharge Disposition: Home or Self Care 07/02/2024 2:39 PM EST - 07/02/2024 6:32 PM [facility] Emergency [address] [place] [address] Eliceo Schmitz MD Right flank pain (Primary Dx) Discharge Disposition: Home or Self Care from Last 3 Months Immunizations Name Administration Dates Next Due Hepatitis A-Hepatitis B Adult (Twinrix) 18yo and older 06/17/2020 Surgical History Surgery Date Site/Laterality Comments TUBAL LIGATION PROCEDURE: HISTORICAL TUBAL LIGATION TONSILLECTOMY PROCEDURE: HISTORICAL TONSILLECTOMY Medical History Medical History Date Comments Chronic hepatitis C (CMS/HCC) DX :Chronic hepatitis C (HCC) History of drug use DX:History o f drug use Family History Medical History Relation Name Comments No Known Problems Daughter 1 No Known Problems Daughter 2 No Known Problems Father No Known Problems Mother No Known Problems Son 1 No Known Problems Son 2 Relation Name Status Comments Daughter 1 Alive Daughter 2 Alive Father Mother Son 1 Alive Son 2 Alive Social History Tobacco Use Types Packs/Day Years Used Date Smoking Tobacco: Some Days Smokeless Tobacco: Never Alcohol Use Standard Drinks/Week Comments Yes 0 (1 standard drink = 0.6 oz pur e alcohol) Comments Unknown Sex and Gender Information Value Date Recorded Sex Assigned at Not on file Legal Sex Female 4:17 PM EST Gender Identity Not on file Sexual Orientation Not on file Obstetrics History Last Filed Vital Signs Vital Sign Reading Time Taken Comments Blood Pressure 127/76 07/05/2024 6:46 AM EST Pulse 70 07/05/2024 6:46 AM EST Temperature 36.9 ??C (98.4 ??F) 07/05/2024 6:46 AM ES T Respiratory Rate 18 07/05/2024 12:33 AM EST Oxygen Saturation 96% 07/05/2024 6:46 AM EST Inhaled Oxygen Concentration - - Weight 83.9 kg (185 lb) 07/04/2024 5:58 PM EST Height 162.6 cm (5' 4 ) 07/04/2024 5:58 PM EST Body Mass Index 31.76 07/04/2024 5:58 PM EST Plan of Treatment Health Maintenance Due Date Last Done Comments Breast Cancer Screening 1974 Pneumococcal Vaccine: Pediatrics (0 to 5 Years) and At-Risk Patients (6 to 64 Years) (1 of 2 - PCV) 1980 Cervical Cancer Screening: P ap Smear 10/14/1995 Hepatitis B Vaccines (2 of 3 - Hep B Twinrix 3-dose series) 07/15/2020 06/17/2020 Colorectal Cancer Screening: Colonoscopy 06/12/2022 Depression Screening 06/12/2022 HIV Screening 06/12/2022 Medicare Annual Wellness Visit 06/12/2022 Social Influencers of Health Screening 06/12/2022 COVID-19 Vaccine (2 - 2023-2 5 season) 2024 07/07/2021 Influenza Vaccine (#1) 2024 07/13/2022 Cholesterol Screening (Lipid Panel) 12/23/2024 12/24/2019 Hypertension/CHF/CAD Annual BMP Blood Test 07/04/2025 07/04/2024, 07/02/2024, 12/24/2019 DTaP,Tdap,and Td Vaccines (3 - Td or Tdap) 06/15/2032 06/15/2022, 10/02/2021 Hepatitis C Screening Completed 12/24/2019 Hepatitis A Vaccines Aged Out 06/17/2020 No long er eligible based on patient's age to complete this topic HIB Vaccines Aged Out No longer eligi ble based on patient's age to complete this topic HPV Vaccines Aged Out No longer eligi ble based on patient's age to complete this topic IPV Vaccines Aged Out No longer eligi ble based on patient's age to complete this topic MMR Vaccines Aged Out No longer eligi ble based on patient's age to complete this topic Meningococcal ACWY Vaccine Aged Out N o longer eligible based on patient's age to complete this topic RSV Immunization Patients Under 20 months Aged Out No longer eligible b ased on patient's age to complete this topic Varicella Vaccines Aged Out No longer eligible based on patient's age to complete this topic Procedures Procedure Name Priority Date/Time Associated Diagnosis Comments CBC WITH AUTO DIFFERENTIAL STAT 07/04/2024 9:50 PM EST COMPREHENSIVE METABOLIC PANEL STAT 07/04/2024 9:50 PM EST CBC AND DIFFERENTIAL STAT 07/04/2024 9:50 PM EST [facility] URINE CULTURE TUBE STAT 07/04/2024 9:25 PM EST URINALYSIS WITH REFLEX MICROSCOPIC AND CULTURE STAT 07/04/2024 9:25 PM EST URINALYSIS WITH REFLEX MICROSCOPIC AND CULTURE STAT 07/04/2024 9:25 PM EST POC , URINE DIAGNOSTIC STAT 07/02/2024 4:[address] ABDOMEN PELVIS WO CONTRAST STAT 07/02/2024 4:27 PM EST [facility] URINE CULTURE TUBE STAT 07/02/2024 3:11 PM EST URINALYSIS WITH REFLEX MICROSCOPIC AND CULTURE STAT 07/02/2024 3:11 PM EST URINALYSIS WITH REFLEX MICROSCOPIC AND CULTURE STAT 07/02/2024 3:11 PM EST CULTURE URINE STAT 07/02/2024 3:11 PM EST HCG, SERUM, QUALITATIVE STAT Add-on 07/02/2024 2:39 PM EST CBC WITH AUTO DIFFERENTIAL STAT 07/02/2024 2:39 PM EST COMPREHENSIVE METABOLIC PANEL STAT 07/02/2024 2:39 PM EST CBC AND DIFFERENTIAL STAT 07/02/2024 2:39 PM EST HM HEPATITIS C SCREENING Routine 12/24/2019 LIPID PANEL Routine 12/24/2019 from Last 3 Months or Most Recently Relevant to Health Maintenance Results * (ABNORMAL) CBC auto differential (07/04/2024 9:50 PM EST) Only the most recent of2 resultswithin the time period is included. WBC 11.2(H) 4.8 - 10.8 K/mcL LAB HEMETOLOGY METHOD 07/04/2024 9:58 PM [facility] RBC 3.90 3.80 - 4.80 M/mcL LAB HEMETOLOGY METHOD 07/04/2024 9:58 PM [facility] Hemoglobin 12.7 11.5 - 16.0 g/dL LAB HEMETOLOGY METHOD 07/04/2024 9:58 PM [facility] Hematocrit 38.2 35.0 - 47.0 % LAB HEMETOLOGY METHOD 07/04/2024 9:58 PM [facility] MCV 97.7 79.0 - 98.0 FL LAB HEMETOLOGY METHOD 07/04/2024 9:58 PM [facility] MCH 32.5(H) 27.0 - 32.0 pcg LAB HEMETOLOGY METHOD 07/04/2024 9:58 PM EST [facility] MCHC 33.2 32.0 - 37.0 g/dL LAB HEMETOLOGY METHOD 07/04/2024 9:58 PM [facility] RDW 13.1 11.0 - 15.0 % LAB HEMETOLOGY METHOD 07/04/2024 9:58 PM [facility] Platelets 312 130 - 400 K/mcL LAB HEMETOLOGY METHOD 07/04/2024 9:58 PM [facility] MPV 10.2 7.0 - 11.0 FL LAB HEMETOLOGY METHOD 07/04/2024 9:58 PM [facility] NRBC 0.0 <1.0 % LAB HEMETOLOGY METHOD 07/04/2024 9:58 PM [facility] NRBC Absolute 0.00 <0.10 K/mcL LAB HEMETOLOGY METHOD 07/04/2024 9:58 PM [facility] Neutrophils Relative 76.4 % LAB HEMETOLOGY METHOD 07/04/2024 9:58 PM [facility] Lymphocytes Relative 16.4 % LAB HEMETOLOGY METHOD 07/04/2024 9:58 PM [facility] Monocytes Relative 5.7 % LAB HEMETOLOGY METHOD 07/04/2024 9:58 PM [facility] Eosinophils Relative 0.7 % LAB HEMETOLOGY METHOD 07/04/2024 9:58 PM [facility] Basophils Relative 0.4 % LAB HEMETOLOGY METHOD 07/04/2024 9:58 PM [facility] Immature Granulocytes Relative 0.4 % LAB HEMETOLOGY METHOD 07/04/2024 9:58 PM [facility] Neutrophils Absolute 8.54(H) 1.50 - 7.00 K/mcL LAB HEMETOLOGY METHOD 07/04/2024 9:58 PM [facility] Lymphocytes Absolute 1.84 1.00 - 5.00 K/mcL LAB HEMETOLOGY METHOD 07/04/2024 9:58 PM EST [facility] Monocytes Absolute 0.64 0.20 - 1.00 K/mcL LAB HEMETOLOGY METHOD 07/04/2024 9:58 PM [facility] Eosinophils Absolute 0.08 0.00 - 0.50 K/mcL LAB HEMETOLOGY METHOD 07/04/2024 9:58 PM EST [facility] Basophils Absolute 0.05 0.00 - 0.20 K/mcL LAB HEMETOLOGY METHOD 07/04/2024 9:58 PM [facility] Immature Granulocytes Absolute 0.05(H) 0.00 - 0.03 K/mcL LAB HEMETOLOGY METHOD 07/04/2024 9:58 PM [facility] Blood Venous blood specimen / Unknown Venipuncture / Unknown 07/04/2024 9:50 PM EST 07/04/2024 9:50 PM EST Troy Mckeon DO LAB BLOOD ORDERABLES Final Result [facility] [address] [place] [address], * Comprehensive metabolic panel (07/04/2024 9:50 PM EST) Only the most recent of2 resultswithin the time period is included. Sodium 133 133 - 145 mmol/L LAB CHEMISTRY METHOD 07/04/2024 10:17 PM [facility] Potassium 4.4 3.5 - 5.5 mmol/L LAB CHEMISTRY METHOD 07/04/2024 10:17 PM [facility] Chloride 102 96 - 110 mmol/L LAB CHEMISTRY METHOD 07/04/2024 10:17 PM [facility] CO2 25 21 - 32 mmol/L LAB CHEMISTRY METHOD 07/04/2024 10:17 PM [facility] Anion Gap 6 3 - 11 LAB CHEMISTRY METHOD 07/04/2024 10:17 PM [facility] Glucose 88 70 - 100 mg/dL LAB CHEMISTRY METHOD 07/04/2024 10:17 PM [facility] BUN 9 5 - 25 mg/dL LAB CHEMISTRY METHOD 07/04/2024 10:17 PM [facility] Creatinine 0.85 0.50 - 1.10 mg/dL LAB CHEMISTRY METHOD 07/04/2024 10:17 PM [facility] eGFR 84 >=60 mL/min/1. 73m2 LAB CHEMISTRY METHOD 07/04/2024 10:17 PM [facility] Comment:Calculation based on the??Chronic Kidney Disease Epidemiology Collaboration (CKD-EPI) equation refit??without adjustment for race. BUN/Creatinine Ratio 10.6 LAB CHEMISTRY METHOD 07/04/2024 10:17 PM [facility] Calcium 9.7 8.5 - 10.5 mg/dL LAB CHEMISTRY METHOD 07/04/2024 10:17 PM [facility] AST (SGOT) 12 10 - 42 unit/L LAB CHEMISTRY METHOD 07/04/2024 10:17 PM [facility] ALT (SGPT) 12 10 - 60 unit/L LAB CHEMISTRY METHOD 07/04/2024 10:17 PM [facility] Alkaline Phosphatase 89 42 - 121 unit/L LAB CHEMISTRY METHOD 07/04/2024 10:17 PM [facility] Total Protein 7.4 6.0 - 8.0 g/dL LAB CHEMISTRY METHOD 07/04/2024 10:17 PM [facility] Albumin 3.6 3.2 - 5.0 g/dL LAB CHEMISTRY METHOD 07/04/2024 10:17 PM [facility] Total Bilirubin 0.5 0.0 - 1.4 mg/dL LAB CHEMISTRY METHOD 07/04/2024 10:17 PM [facility] Blood Venous blood specimen / Unknown Venipuncture / Unknown 07/04/2024 9:50 PM EST 07/04/2024 9:50 PM EST us Troy Mckeon DO LAB BLOOD ORDERABLES Final Result [facility] [address] [place] [address], [place] [phone] * (ABNORMAL) Urinalysis with reflex microscopic and culture (07/04/2024 9:25 PM EST) Only the most recent of2 resultswithin the time period is included. Specific Paicines Urine 1.036(H) 1.003 - 1.030 LAB URINALYSIS - AUTOMATED METHOD 07/04/2024 10:05 PM [facility] pH, Urine 6.0 5.0 - 8.0 pH LAB URINALYSIS - AUTOMATED METHOD 07/04/2024 10:05 PM [facility] Leukocytes, Urine Negative Negative LAB URINALYSIS - AUTOMATED METHOD 07/04/2024 10:05 PM [facility] Nitrite, Urine Negative Negative LAB URINALYSIS - AUTOMATED METHOD 07/04/2024 10:05 PM [facility] Protein, Urine 30(A) <=Trace mg/dL LAB URINALYSIS - AUTOMATED METHOD 07/04/2024 10:05 PM [facility] Glucose, Urine Negative Negative mg/dL LAB URINALYSIS - AUTOMATED METHOD 07/04/2024 10:05 PM [facility] Ketones, Urine 15(A) Negative mg/dL LAB URINALYSIS - AUTOMATED METHOD 07/04/2024 10:05 PM [facility] Urobilinogen, Urine 1.0 0.2 - 1.0 mg/dL LAB URINALYSIS - AUTOMATED METHOD 07/04/2024 10:05 PM [facility] Bilirubin, Urine Negative Negative LAB URINALYSIS - AUTOMATED METHOD 07/04/2024 10:05 PM [facility] Blood, Urine Negative Negative LAB URINALYSIS - AUTOMATED METHOD 07/04/2024 10:05 PM [facility] RBC, Urine 4.0 0 - 4 /HPF LAB URINALYSIS - AUTOMATED METHOD 07/04/2024 10:05 PM [facility] WBC, Urine 3.0 0 - 4 /HPF LAB URINALYSIS - AUTOMATED METHOD 07/04/2024 10:05 PM [facility] Squamous Epithelial, Urine >100(H) 0 - 60 /LPF LAB URINALYSIS - AUTOMATED METHOD 07/04/2024 10:05 PM [facility] Bacteria, Urine Few(A) Negative /HPF LAB URINALYSIS - AUTOMATED METHOD 07/04/2024 10:05 PM [facility] Hyaline Casts, Urine 1.2 0 - 3 /LPF LAB URINALYSIS - AUTOMATED METHOD 07/04/2024 10:05 PM [facility] Urine Urine specimen obtained by clean catch procedure / Unknown Non-blood Collection / Unknown 07/04/2024 9:25 PM EST 07/04/2024 9:51 PM EST us Troy Mckeon DO LAB URINE ORDERABLES Final Result [facility] [address] [place] [address], * [facility] urine culture tube (07/04/2024 9:25 PM EST) Only the most recent of2 resultswithin the time period is included. Extra Tube Hold for add-ons. 07/04/2024 11:01 PM [facility] Comment:Auto resulted. Urine Urine specimen obtained by clean catch procedure / Unknown Non-blood Collection / Unknown 07/04/2024 9:25 PM EST 07/04/2024 9:51 PM EST Troy Mckeon DO LAB URINE ORDERABLES Final Result [facility] [address] [place] [address], [place] [phone] * POC , urine manually resulted (07/02/2024 4:58 PM EST) HCG, Ur POC Negative Negative POC hCG Int QC Pass? Yes Yes Urine Urine specimen obtained by clean catch procedure / Unknown 07/02/2024 4:58 PM EST Derrick [facility] POINT OF CARE TEST ENTER/ EDIT ORDERABLES Final Result * CT Abdomen Pelvis wo Contrast (07/02/2024 4:27 PM EST) Anatomical Region Laterality Modality Body Computed Tomogra phy 07/02/2024 5:26 PM EST Impressions 07/02/2024 5:26 PM EST Impression: No urinary tract stone or obstruction. Underdistended thick-walled bladder. Correlate with urinalysis to exclude cystitis. This document has been electronically signed by: Vibha Rivas MD on 07/02/2024 17:26:11 Narrative 07/02/2024 5:[address] abdomen and pelvis without contrast Comparison: None Findings: No nephrolithiasis or hydronephrosis. No perinephric or periureteral stranding. No bladder stone. Underdistended thick-walled bladder. No consolidation at the lung bases. Unremarkable gallbladder. The other solid organs are normal. No bowel wall thickening or dilation. A normal appendix is identified. No aneurysm. Mild calcified atherosclerotic disease. No lymphadenopathy. No ascites. No acute fracture. Intact left total hip arthroplasty. Procedure Note Vibha Saavedra MD - 07/02/2024 CT abdomen and pelvis without contrast Comparison: None Findings: No nephrolithiasis or hydronephrosis. No perinephric or periureteral stranding. No bladder stone. Underdistended thick-walled bladder. No consolidation at the lung bases. Unremarkable gallbladder. The other solid organs are normal. No bowel wall thickening or dilation. A normal appendix is identified. No aneurysm. Mild calcified atherosclerotic disease. No lymphadenopathy. No ascites. No acute fracture. Intact left total hip arthroplasty. IMPRESSION: Impression: No urinary tract stone or obstruction. Underdistended thick-walled bladder. Correlate with urinalysis to exclude cystitis. This document has been electronically signed by: Vibha Rivas MD on 07/02/2024 17:26:[address] PROCEDURES Final R esult * Culture urine (07/02/2024 3:11 PM EST) [facility] Culture, Urine No growth 07/03/2024 10:02 AM EST [facility] Urine Urine specimen obtained by clean catch procedure / Unknown Non-blood Collection / Unknown 07/02/2024 3:11 PM EST 07/02/2024 4:19 PM EST David Lynn MD LAB MICROBIOLOGY - GENERAL ORDSawyer BOX Final Result Performing Organization Address City/[facility]/ZIP Co de Phone Number [facility] [address] [place] [address], [place] [phone] * hCG, serum, qualitative (07/02/2024 2:39 PM EST) [facility] hCG Qual Negative Negative 07/02/2024 4:20 PM EST [facility] Blood Venous blood specimen / Unknown Venipuncture / Unknown 07/02/2024 2:39 PM EST 07/02/2024 2:50 PM EST Derrick [facility] LAB BLOOD ORDERABLES Zoë l Result Performing Organization Address City/[facility]/ZIP Co de Phone Number [facility] [address] [place] [address], [place] [phone] * Hepatitis C Screening (12/24/2019) Hepatitis C Screening abstracted Historical Provider HEALTH MAINTENANCE Final Result * (ABNORMAL) Lipid panel (12/24/2019) LDL/HDL Ratio 2 0 - 4 Triglycerides 105 0 - 150 mg/dL Cholesterol 209(A) 0 - 200 mg/dL HDL 91 >=40 mg/dL LDL Cholesterol 97 0 - 100 mg/dL Blood Venous blood specimen / Unknown us Historical Provider LAB BLOOD ORDERABLES Zoë l Result from Last 3 Months or Most Recently Relevant to Health Maintenance Insurance [employer] MED[employer] Member Subscriber Plan / Payer (Ef fective 2021-Present) Name:Shelly Dale Relation to Subscriber:Self Name:Shelly Dale Payer ID:[id number] Group ID:[id number] Type:Not on file Address: [place] [address] [address] [address] Care Teams [employer] Relationship Specialty Start Date End Date Alicia Lilly MD [address] [place] [id number] PCP - General Internal Medicine 04/26/22
--- OUTSIDE RECORDS SUMMARY | 2024-08-20 16:08 | XMS_ITS | Data Portability ---
Author Organization [place] - [facility] [id number] Address [address] [place] [address] Assessment No assessment recorded. Plan of Treatment Reminders Order Date Submit Date Provider Last Modified By Organization Details Last Modified Time Details Appointments None record ed. Lab None record ed. Referral None record ed. Procedures None record ed. Surgeries None record ed. Imaging None record ed. Medication Orders None record ed. Patient TargetsNo targets recorded. Patient InstructionsNo instructions recorded. Reason for Referral None Reported. Procedures Surgical History Date Name Laterality Status Provider Name and Address Organization Details Recorded Time OC-UDS Send Out Template NON DOT completed Paulina [facility] 01/30/2024 16:00:27 Imaging Results None recorded. Procedure Notes None recorded. Medical Equipment None Reported. Medications Name Sig Start Date Stop Date Status Note LastModified by Organization Details LastModified Time nicotine 14 mg/24 hr daily transdermal patch APPLY 1 PATCH TOPICALLY TO THE SKIN DAILY FOR 14 DAYS active Not Available Not Available No t Available quetiapine 300 mg tablet TAKE 1 TABLET BY MOUTH EVERY NIGHT AT BEDTIME active Not Available Not Available No t Available metronidazole 500 mg tablet TAKE 1 TABLET BY MOUTH TWICE DAILY FOR 7 DAYS active Not Available Not Available No t Available quetiapine 100 mg tablet TAKE 1 TABLET BY MOUTH EVERY MORNING active Not Available Not Available No t Available disulfiram 250 mg tablet active Not Available Not Availabl e Not Available sertraline 50 mg tablet TAKE 1 TABLET BY MOUTH EVERY DAY active Not Available Not Available No t Available disulfiram 500 mg tablet TAKE 1 TABLET BY MOUTH EVERY DAY active Not Available Not Available No t Available nicotine 7 mg/24 hr daily transdermal patch APPLY 1 PATCH TOPICALLY TO THE SKIN EVERY 24 HOURS FOR 14 DAYS active Not Available Not Available No t Available acamprosate 333 mg tablet,delaye d release TAKE 3 TABLETS BY MOUTH TWICE DAILY active Not Available Not Available No t Available trospium ER 60 mg capsule,exten ded release 24 hr TAKE 1 CAPSULE BY MOUTH DAILY IN THE MORNING active Not Available Not Available No t Available Sublocade 100 mg/0.5 mL solution,exte nded release subcutaneous syringe active Not Available Not Available Not Available Vitals None Recorded Social History None recorded. Functional Status None recorded. Mental Status None recorded. Family History Nothing Reported. Medical History No medical history recorded. Gynecological HistoryNo gynecological history recorded. Obstetrics History GPAL:G 0 P 0 0 0 0 Past Encounters Encounter ID Performer Location Encounter Start Date Encounter Closed Date Diagnosis/Indication Diagnosis SNOMED-CT Code Diagnosis ICD10 Code Diagnosis Note [id number] [address] [place] [address] 01/13/2021 12:37:53 01/13/2021 13:37:46 [id number] [address] [place] [address] 10/31/2021 11:18:20 10/31/2021 13:02:24 [id number] [address] [place] [address] 03/01/2021 08:23:51 03/01/2021 11:17:49 [id number] [address] [place] [address] 05/18/2020 17:44:07 05/18/2020 19:26:19 [id number] BRETT JOHNSON [address] [place] [address] 01/30/2024 15:34:23 01/30/2024 16:04:58 History and physical examination, occupation 049454670 Z02.1 Health Concerns Section Related Observation LastModified by Organization Detai ls LastModified Time None Recorded Concern Status LastModified by Organization Details LastModified Time None Recorded Advance Directives Directive None Recorded Payers Encounter Date Sequence Insurance Name Policy Number Policy Armstrong Covered Member ID Armstrong Member ID Guarantor Name 05/18/2020 1 [facility] [id number] Shelly Dale [id number] Shelly Dale 01/30/2024 [employer]CRE[employer] OTHER Lian Dale OBGyn Episode No OBEpisode recorded.
== END 2024-08-20 15:46 | disposition home or self-care (01) ==
PROVIDERS: PCP Physician Assistant; Visit Provider Physician Assistant
DX: Z00.00 Encounter for general adult medical examination without abnormal findings (principal); R20.2 Paresthesia of skin; E78.2 Mixed hyperlipidemia; F17.200 Nicotine dependence, unspecified, uncomplicated; Z11.1 Encounter for screening for respiratory tuberculosis; F33.1 Major depressive disorder, recurrent, moderate; F43.10 Post-traumatic stress disorder, unspecified; F31.9 Bipolar disorder, unspecified; F19.11 Other psychoactive substance abuse, in remission; K62.9 Disease of anus and rectum, unspecified; R15.9 Full incontinence of feces

== ENCOUNTER 2024-08-20 14:55 | Outpatient (REF) | payer OTHER, SELFPAY ==
--- OUTSIDE RECORDS SUMMARY | 2024-08-20 16:33 | XMS_ITS | Clinical Summary ---
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
--- OUTSIDE RECORDS SUMMARY | 2024-08-20 16:33 | XMS_ITS | Clinical Summary ---
Author Organization [facility] Address [address] [place] [address] Phone Care Team Providers Care Ship Cleaner Name Role Phone Alicia Lilly MD Primary Care Provider [phone] Allergies Active Allergy Reactions Criticality Noted Date [...] 4:03 AM EST - 07/05/2024 7:45 AM [facility] Emergency [address] [place] [address] Eliceo Schmitz MD Acute exacerbation of chronic low back pain (Primary Dx) Discharge Disposition: Home or Self Care 07/02/2024 2:39 PM EST - 07/02/2024 6:32 PM [facility] Emergency [address] [place] [address] Eliceo Schmitz MD Right flank pain (Primary [...] WO CONTRAST STAT 07/02/2024 4:27 PM EST [facility] URINE CULTURE TUBE STAT 07/02/2024 3:11 PM [...] K/mcL LAB HEMETOLOGY METHOD 07/04/2024 9:58 PM [facility] RBC 3.90 3.80 - 4.80 M/mcL LAB HEMETOLOGY METHOD 07/04/2024 9:58 PM [facility] Hemoglobin 12.7 11.5 - 16.0 g/dL LAB HEMETOLOGY METHOD 07/04/2024 9:58 PM [facility] Hematocrit 38.2 35.0 - 47.0 % LAB HEMETOLOGY METHOD 07/04/2024 9:58 PM [facility] MCV 97.7 79.0 - 98.0 FL LAB HEMETOLOGY METHOD 07/04/2024 9:58 PM [facility] MCH 32.5(H) 27.0 - 32.0 pcg LAB HEMETOLOGY METHOD 07/04/2024 9:58 PM EST [facility] MCHC 33.2 32.0 - 37.0 g/dL LAB HEMETOLOGY METHOD 07/04/2024 9:58 PM [facility] RDW 13.1 11.0 - 15.0 % LAB HEMETOLOGY METHOD 07/04/2024 9:58 PM [facility] Platelets 312 130 - 400 K/mcL LAB HEMETOLOGY METHOD 07/04/2024 9:58 PM [facility] MPV 10.2 7.0 - 11.0 FL LAB HEMETOLOGY METHOD 07/04/2024 9:58 PM [facility] NRBC 0.0 <1.0 % LAB HEMETOLOGY METHOD 07/04/2024 9:58 PM [facility] NRBC Absolute 0.00 <0.10 K/mcL LAB HEMETOLOGY METHOD 07/04/2024 9:58 PM [facility] Neutrophils Relative 76.4 % LAB HEMETOLOGY METHOD 07/04/2024 9:58 PM [facility] Lymphocytes Relative 16.4 % LAB HEMETOLOGY METHOD 07/04/2024 9:58 PM [facility] Monocytes Relative 5.7 % LAB HEMETOLOGY METHOD 07/04/2024 9:58 PM [facility] Eosinophils Relative 0.7 % LAB HEMETOLOGY METHOD 07/04/2024 9:58 PM [facility] Basophils Relative 0.4 % LAB HEMETOLOGY METHOD 07/04/2024 9:58 PM [facility] Immature Granulocytes Relative 0.4 % LAB HEMETOLOGY METHOD 07/04/2024 9:58 PM [facility] Neutrophils Absolute 8.54(H) 1.50 - 7.00 K/mcL LAB HEMETOLOGY METHOD 07/04/2024 9:58 PM [facility] Lymphocytes Absolute 1.84 1.00 - 5.00 K/mcL LAB HEMETOLOGY METHOD 07/04/2024 9:58 PM EST [facility] Monocytes Absolute 0.64 0.20 - 1.00 K/mcL LAB HEMETOLOGY METHOD 07/04/2024 9:58 PM [facility] Eosinophils Absolute 0.08 0.00 - 0.50 K/mcL LAB HEMETOLOGY METHOD 07/04/2024 9:58 PM EST [facility] Basophils Absolute 0.05 0.00 - 0.20 K/mcL LAB HEMETOLOGY METHOD 07/04/2024 9:58 PM [facility] Immature Granulocytes Absolute 0.05(H) 0.00 - 0.03 K/mcL LAB HEMETOLOGY METHOD 07/04/2024 9:58 PM [facility] Blood Venous blood specimen / Unknown Venipuncture / Unknown 07/04/2024 9:50 PM EST 07/04/2024 9:50 PM EST Troy Mckeon DO LAB BLOOD ORDERABLES Final Result [facility] [address] [place] [address], * Comprehensive metabolic panel (07/04/2024 9:50 PM EST) Only the most recent of2 resultswithin the time period is included. Sodium 133 133 - 145 mmol/L LAB CHEMISTRY METHOD 07/04/2024 10:17 PM [facility] Potassium 4.4 3.5 - 5.5 mmol/L LAB CHEMISTRY METHOD 07/04/2024 10:17 PM [facility] Chloride 102 96 - 110 mmol/L LAB CHEMISTRY METHOD 07/04/2024 10:17 PM [facility] CO2 25 21 - 32 mmol/L LAB CHEMISTRY METHOD 07/04/2024 10:17 PM [facility] Anion Gap 6 3 - 11 LAB CHEMISTRY METHOD 07/04/2024 10:17 PM [facility] Glucose 88 70 - 100 mg/dL LAB CHEMISTRY METHOD 07/04/2024 10:17 PM [facility] BUN 9 5 - 25 mg/dL LAB CHEMISTRY METHOD 07/04/2024 10:17 PM [facility] Creatinine 0.85 0.50 - 1.10 mg/dL LAB CHEMISTRY METHOD 07/04/2024 10:17 PM [facility] eGFR 84 >=60 mL/min/1. 73m2 LAB CHEMISTRY METHOD 07/04/2024 10:17 PM [facility] Comment:Calculation based on the??Chronic Kidney Disease Epidemiology Collaboration (CKD-EPI) equation refit??without adjustment for race. BUN/Creatinine Ratio 10.6 LAB CHEMISTRY METHOD 07/04/2024 10:17 PM [facility] Calcium 9.7 8.5 - 10.5 mg/dL LAB CHEMISTRY METHOD 07/04/2024 10:17 PM [facility] AST (SGOT) 12 10 - 42 unit/L LAB CHEMISTRY METHOD 07/04/2024 10:17 PM [facility] ALT (SGPT) 12 10 - 60 unit/L LAB CHEMISTRY METHOD 07/04/2024 10:17 PM [facility] Alkaline Phosphatase 89 42 - 121 unit/L LAB CHEMISTRY METHOD 07/04/2024 10:17 PM [facility] Total Protein 7.4 6.0 - 8.0 g/dL LAB CHEMISTRY METHOD 07/04/2024 10:17 PM [facility] Albumin 3.6 3.2 - 5.0 g/dL LAB CHEMISTRY METHOD 07/04/2024 10:17 PM [facility] Total Bilirubin 0.5 0.0 - 1.4 mg/dL LAB CHEMISTRY METHOD 07/04/2024 10:17 PM [facility] Blood Venous blood specimen / Unknown Venipuncture / Unknown 07/04/2024 9:50 PM EST 07/04/2024 9:50 PM EST us Troy Mckeon DO LAB BLOOD ORDERABLES Final Result [facility] [address] [place] [address], [place] [phone] * (ABNORMAL) Urinalysis with reflex microscopic and culture (07/04/2024 9:25 PM EST) Only the most recent of2 resultswithin the time period is included. Specific [place] Urine 1.036(H) 1.003 - 1.030 LAB URINALYSIS - AUTOMATED METHOD 07/04/2024 10:05 PM [facility] pH, Urine 6.0 5.0 - 8.0 pH LAB URINALYSIS - AUTOMATED METHOD 07/04/2024 10:05 PM [facility] Leukocytes, Urine Negative Negative LAB URINALYSIS - AUTOMATED METHOD 07/04/2024 10:05 PM [facility] Nitrite, Urine Negative Negative LAB URINALYSIS - AUTOMATED METHOD 07/04/2024 10:05 PM [facility] Protein, Urine 30(A) <=Trace mg/dL LAB URINALYSIS - AUTOMATED METHOD 07/04/2024 10:05 PM [facility] Glucose, Urine Negative Negative mg/dL LAB URINALYSIS - AUTOMATED METHOD 07/04/2024 10:05 PM [facility] Ketones, Urine 15(A) Negative mg/dL LAB URINALYSIS - AUTOMATED METHOD 07/04/2024 10:05 PM [facility] Urobilinogen, Urine 1.0 0.2 - 1.0 mg/dL LAB URINALYSIS - AUTOMATED METHOD 07/04/2024 10:05 PM [facility] Bilirubin, Urine Negative Negative LAB URINALYSIS - AUTOMATED METHOD 07/04/2024 10:05 PM [facility] Blood, Urine Negative Negative LAB URINALYSIS - AUTOMATED METHOD 07/04/2024 10:05 PM [facility] RBC, Urine 4.0 0 - 4 /HPF LAB URINALYSIS - AUTOMATED METHOD 07/04/2024 10:05 PM [facility] WBC, Urine 3.0 0 - 4 /HPF LAB URINALYSIS - AUTOMATED METHOD 07/04/2024 10:05 PM [facility] Squamous Epithelial, Urine >100(H) 0 - 60 /LPF LAB URINALYSIS - AUTOMATED METHOD 07/04/2024 10:05 PM [facility] Bacteria, Urine Few(A) Negative /HPF LAB URINALYSIS - AUTOMATED METHOD 07/04/2024 10:05 PM [facility] Hyaline Casts, Urine 1.2 0 - 3 /LPF LAB URINALYSIS - AUTOMATED METHOD 07/04/2024 10:05 PM [facility] Urine Urine specimen obtained by clean catch procedure / Unknown Non-blood Collection / Unknown 07/04/2024 9:25 PM EST 07/04/2024 9:51 PM EST us Troy Mckeon DO LAB URINE ORDERABLES Final Result [facility] [address] [place] [address], * [place] urine culture tube (07/04/2024 9:25 PM EST) Only the most recent of2 resultswithin the time period is included. Extra Tube Hold for add-ons. 07/04/2024 11:01 PM [facility] Comment:Auto resulted. Urine Urine specimen obtained by clean catch procedure / Unknown Non-blood Collection / Unknown 07/04/2024 9:25 PM EST 07/04/2024 9:51 PM EST Troy Mckeon DO LAB URINE ORDERABLES Final Result [facility] ([facility]) [facility] [address] [place] [address], [place] [phone] * POC , urine manually resulted (07/02/2024 [...] * Culture urine (07/02/2024 3:11 PM EST) [facility] Culture, Urine No growth 07/03/2024 10:02 AM EST [facility] Urine Urine specimen obtained by clean catch procedure / Unknown Non-blood Collection / Unknown 07/02/2024 3:11 PM EST 07/02/2024 4:19 PM EST David Lynn MD LAB MICROBIOLOGY - GENERAL ORDSawyer BOX Final Result Performing Organization Address City/[facility]/ZIP Co de Phone Number [facility] [address] [place] [address], [place] [phone] * hCG, serum, qualitative (07/02/2024 2:39 PM EST) [facility] hCG Qual Negative Negative 07/02/2024 4:20 PM EST [facility] Blood Venous blood specimen / Unknown Venipuncture / Unknown 07/02/2024 2:39 PM EST 07/02/2024 2:50 PM EST Derrick [facility] LAB BLOOD ORDERABLES Zoë l Result Performing Organization Address City/[facility]/ZIP Co de Phone Number [facility] [address] [place] [address], [place] [phone] * Hepatitis C Screening (12/24/2019) Hepatitis C [...] ID:[id number] Group ID:[id number] Type:Not on file Address: [place] [address] [address] [address] Care Teams Ship Cleaner Relationship Specialty Start Date End Date Alicia Lilly MD [address] [place] [id number] PCP - General Internal Medicine 04/26/22
[2024-08-20 16:39] LABS: Hematocrit 42.2 % (37.0-47.0); Hemoglobin 14.4 g/dl (12.0-16.0); Mean Corpuscular HGB Conc 34.1 g/dl (31.0-35.0); Mean Corpuscular Hemoglobin 31.5 pg (27.0-33.0); Mean Corpuscular Volume 92.3 fL (80.0-98.0); Mean Platelet Volume 10.2 fL (9.4-12.3); Platelet Count 297 X10*3/uL (160-400); Red Blood Count 4.57 X10*6/uL (4.20-5.50); Red Cell Distribution Width 12.7 % (11.0-16.0); White Blood Count 9.1 X10*3/uL (4.8-10.8)
[2024-08-20 17:04] LABS: Alanine Aminotransferase 13 U/L (0-31); Albumin Level 4.2 g/dL (3.5-5.0); Alkaline Phosphatase 76 U/L (39-117); Anion Gap 9 (12-20); Aspartate Amino Transferase 22 U/L (5-31); Bilirubin Total 0.4 mg/dL (0.0-1.0); Blood Urea Nitrogen 11 mg/dL (9-16); Calcium 9.3 mg/dL (8.4-10.2); Carbon Dioxide 28 mmol/L (22-29); Chloride 108 mmol/L (96-108); Cholesterol 204 mg/dL (<200); Estimated Glomerular Filt Rate > 60; Glucose Fasting 78 mg/dL (60-99); HDL Cholesterol 58 mg/dL (>40); LDL Cholesterol Calculated 133 mg/dL (<100); Sodium 141 mmol/L (135-145); Total Protein 7.6 g/dL (6.5-8.0); Triglycerides 66 mg/dL (<150)
[2024-08-23 11:08] LABS: TS Negative Control Passed; TS Panel A 0; TS Panel B 1; TS Positive Control Passed; TSpotTB Negative (Negative)
== END 2024-08-20 14:56 | disposition home or self-care (01) ==
LOC: HO.LAB 14:55
PROVIDERS: PCP Physician Assistant; Visit Provider Physician Assistant
DX: Z00.00 Encounter for general adult medical examination without abnormal findings (principal); Z11.1 Encounter for screening for respiratory tuberculosis; R20.2 Paresthesia of skin; E78.2 Mixed hyperlipidemia; F17.200 Nicotine dependence, unspecified, uncomplicated; F33.1 Major depressive disorder, recurrent, moderate; F43.10 Post-traumatic stress disorder, unspecified; F19.11 Other psychoactive substance abuse, in remission; K62.9 Disease of anus and rectum, unspecified; R15.9 Full incontinence of feces; Z71.6 Tobacco abuse counseling
CPT/HCPCS: 36415; 80053; 80061; 85027; 86481; 96127; 99396

== ENCOUNTER 2024-12-31 14:29 | Outpatient (REF) | payer OTHER, SELFPAY ==
--- NOTE | 2024-12-31 14:33 | EMG_ITS ---
Chief complaint: Bilateral hand numbness and pain Reason for referral: Evaluate for Carpal Tunnel Syndrome Referred by: Eric Spence Procedure done: Bilateral upper extremities NCS Precautions and/or limitations: Anxiety over needles. Needle EMG deferred. The limb temperature was monitored continuously and remained between 32-36 degrees C during the performance of the NCS. Ulnar motor NCS was performed with moderate elbow flexion between 70-90 degrees, with across-elbow distance of 10 cm. Nerve Conduction Studies Anti Sensory Summary Table ?Stim Site NR Onset (ms) Norm Onset (ms) Peak (ms) Norm Peak (ms) O-P Amp (?V) Norm O-P Amp Site1 Site2 Delta-0 (ms) Dist (cm) Jonny (m/s) Norm Jonny (m/s) Left Median Anti Sensory (2nd Digit) Wrist NR <3.6 >10 Wrist 2nd Digit 14.0 Right Median Anti Sensory (2nd Digit) Wrist ? 4.4 5.1 <3.6 5.7 >10 Wrist 2nd Digit 4.4 14.0 32 Left Ulnar Anti Sensory (5th Digit) Wrist NR <3.7 >15.0 Wrist 5th Digit 14.0 Right Ulnar Anti Sensory (5th Digit) Wrist NR <3.7 >15.0 Wrist 5th Digit 14.0 Motor Summary Table ?Stim Site NR Onset (ms) Norm Onset (ms) O-P Amp (mV) Norm O-P Amp iAmp (mV) Amp (1st) (%) Site1 Site2 Delta-0 (ms) Dist (cm) Jonny (m/s) Norm Jonny (m/s) Left Median Motor (Abd Poll Brev) Wrist ? 5.1 <3.9 6.3 >4.5 7.1 100.0 Elbow Wrist 4.4 21.0 48 >45 Elbow ? 9.5 6.7 6.9 106.3 Right Median Motor (Abd Poll Brev) Wrist ? 4.6 <3.9 9.0 >4.5 10.5 100.0 Elbow Wrist 4.0 20.0 50 >45 Elbow ? 8.6 8.5 9.7 94.4 Left Ulnar Motor (Abd Dig Minimi) Wrist ? 2.9 <3.0 3.9 >5 4.5 100.0 B Elbow Wrist 3.4 19.0 56 >45 B Elbow ? 6.3 2.9 3.4 74.4 A Elbow B Elbow 3.5 10.0 29 >45 A Elbow ? 9.8 2.8 3.3 71.8 Right Ulnar Motor (Abd Dig Minimi) Wrist ? 3.0 <3.0 6.9 >5 7.9 100.0 B Elbow Wrist 3.6 19.0 53 >45 B Elbow ? 6.6 4.5 5.3 65.2 A Elbow B Elbow 3.6 10.0 28 >45 A Elbow ? 10.2 4.0 4.5 58.0 Comparison Summary Table ?Stim Site NR Peak (ms) Norm Peak (ms) P-T Amp (?V) Site1 Site2 Delta-P (ms) Norm Delta (ms) Right Median/Radial Dig I Comparison (Digit 1 - 10cm) Median ? 4.2 <2.9 10.5 Median Radial 1.5 Radial ? 2.7 <2.8 13.0 FINDINGS: Right ulnar motor nerve showed normal distal latency, smaller amplitudes proximally and slow conduction velocity across the elbow. Left ulnar motor nerve showed normal distal latency, small amplitude and slow conduction velocity across the elbow. Left median motor nerve showed prolonged distal latency, normal amplitude and normal conduction velocity. Right median sensory nerve showed prolonged peak latency and small amplitude. Bilateral ulnar sensory nerves showed absent response. Left ulnar sensory nerve showed absent response. All other nerves tested were within normal. IMPRESSION: 1. This is an abnormal nerve conduction study. 2. There is electrodiagnostic evidence for bilateral ulnar neuropathy at the elbow. 3. There is electrodiagnostic evidence for right moderate-severe and left mild- moderate median neuropathy at the wrist, consistent with Carpal Tunnel Syndrome. Thank you for your kind referral. Luiza Eddy MD, JEFFREY Board Certified, [place] Board of Physical Medicine and Rehabilitation (ABPMR) Board Certified, [place] Board of Electrodiagnostic Medicine (ABEM) CODIN 5 911 MTDD
--- OUTSIDE RECORDS SUMMARY | 2024-12-31 17:18 | XMS_ITS | Data Portability ---
Author Organization [place] - [facility], [address] Address [address] [place] [address] Assessment No assessment recorded. Plan of Treatment [...] Out Template NON DOT completed Paulina [facility] 01/30/2024 16:00:27 Imaging Results None recorded. [...] SNOMED-CT Code Diagnosis ICD10 Code Diagnosis Note [id number] [address] [place] [address] 01/13/2021 12:37:53 01/13/2021 13:37:46 [id number] [address] [place] [address] 10/31/2021 11:18:20 10/31/2021 13:02:24 [id number] [address] [place] [address] 03/01/2021 08:23:51 03/01/2021 11:17:49 [id number] [address] [address] [address] [place] [address] 05/18/2020 17:44:07 05/18/2020 19:26:19 [id number] BRETT JOHNSON [address] [place] [address] 01/30/2024 15:34:23 01/30/2024 16:04:58 History and physical examination, occupation 793891143 Z02.1 Health Concerns Section Related Observation LastModified by Organization Detai ls LastModified Time None Recorded Concern Status LastModified by Organization Details LastModified Time None Recorded Advance Directives Directive None Recorded Payers Insurance Date Sequence Insurance Name Policy Number Policy Armstrong Covered Member ID Armstrong Member ID Guarantor Name 01/30/2024 OC-ESCREEN Escreen OTHER Lian Dale 01/30/2024 1 [facility] [id number] Shel[address] [place] [id number] Shelly Dale OBGyn Episode No OBEpisode recorded.
== END 2024-12-31 14:30 | disposition home or self-care (01) ==
LOC: HO.NEURO 14:29
PROVIDERS: PCP Physician Assistant; Visit Provider Physician Assistant
DX: R20.2 Paresthesia of skin (principal); R94.138 Abnormal results of other function studies of peripheral nervous system
CPT/HCPCS: 95911

== ENCOUNTER → 2024-12-31 14:33 | Outpatient (BNV) | payer OTHER, SELFPAY | PROVIDERS: PCP Physician Assistant; Visit Provider Physical Medicine & Rehabilitation | DX: G56.23 Lesion of ulnar nerve, bilateral upper limbs (principal) | CPT/HCPCS: 95911 ==

== ENCOUNTER 2025-02-06 14:13 | Outpatient (AMB) | payer OTHER, SELFPAY ==
--- NOTE | 2025-02-06 14:16 | A.OFFVIS_ITS ---
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 Patient reports numbness and tingling occurs primarily at night, waking her up through the night. She states this is occurring less frequently, since she starting sleeping on a recliner. She tried using a left hand brace at night but this was causing swelling. 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 No injuries or surgeries to the hands. EMG IMPRESSION 12/31/24: 1. This is an abnormal nerve conduction study. 2. There is electrodiagnostic evidence for bilateral ulnar neuropathy at the elbow. 3. There is electrodiagnostic evidence for right moderate-severe and left mild- moderate median neuropathy at the wrist, consistent with Carpal Tunnel Syndrome. 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 Patient reports numbness and tingling occurs primarily at night, waking her up through the night. She states this is occurring less frequently, since she starting sleeping on a recliner. She tried using a left hand brace at night but this was causing swelling. 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 No injuries or surgeries to the hands. EMG IMPRESSION 12/31/24: 1. This is an abnormal nerve conduction study. 2. There is electrodiagnostic evidence for bilateral ulnar neuropathy at the elbow. 3. There is electrodiagnostic evidence for right moderate-severe and left mild-moderate median neuropathy at the wrist, consistent with Carpal Tunnel Syndrome. [facility] Medical History Anxiety Hx of fracture of foot Hx of fracture of ankle Hx of substance abuse Hepatitis History of post traumatic stress disorder Hx of bipolar disorder Arthritis Surgical History History of tonsillectomy History of tubal ligation Family History Other Mental health disorder Social History Housing: Apartment Are you a primary rental boats caretaker to a significant other at home: No Do you presently have visiting nurse or other home services: No Alcohol intake: current Alcohol intake frequency: does not drink Comment: needs new walker and toilet seat Patient Tobacco Use Status: Current everyday Tobacco user Tobacco use type: Cigarette Cigarettes Per Day: 2 e-Cigarette/Vaping Use: Never Used Second Hand Smoke Exposure: Yes Substance Use Type: Former Substance User and Marijuana service: No Current occupational status: employed 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 Good APB muscle firing and good finger cross. Vascular: Capillary refill brisk. ROM: Patient can make a fist and extend all their digits. Skin: No lacerations or abrasions noted. General: No ecchymosis. No erythema or evidence of infection. Assessment & Plan Assessment & Plan (1) Bilateral carpal tunnel syndrome: Code(s): G56.03 - Carpal tunnel syndrome, bilateral upper limbs Category: Medical (2) Cubital tunnel syndrome, bilateral: Code(s): G56.23 - Lesion of ulnar nerve, bilateral upper limbs Category: Medical Plan 1. Bilateral carpal tunnel syndrome Bilateral cubital tunnel syndrome Symptoms intermittent, daily, worse at night Patient is educated about this condition Patient is educated about the typical treatment course At this time, patient states she is interested in operative intervention for her carpal and cubital tunnel syndromes, however this is not a good time for her and she would like to wait until later in the year Patient is educated on the potential risks of prolonging treatment for carpal and cubital tunnel syndromes, namely progression of symptoms to dense numbness, and thenar and intrinsic wasting Patient states understanding of these risks Patient will follow-up in approximately 3 months, as she states this would be a better time for her to have surgery for surgical discussion, sooner with any acute concerns Coding Level of Care Code Est Pt Level 3 (16632) Diagnoses Bilateral carpal tunnel syndrome G56.03 Cubital tunnel syndrome, bilateral G56.23
--- OUTSIDE RECORDS SUMMARY | 2025-02-06 14:16 | XMS_ITS | Clinical Summary ---
Author Organization [facility] Address [address] [place] [address] Phone Care Team Providers Care Mold Cooler Name Role Phone Pcp, Unknown Primary Care Provider Unavailabl e Social History Tobacco Use Types Packs/Day Years Used Date Smoking Tobacco: Never Assessed Education Answer Date Recorded Are you interested in more education? Not on juan e 11/04/2022 Are you concerned about learning? Not on file 11/04/2022 No 11/04/2022 No 11/04/2022 Digital Access Answer Date Recorded No 12/03/2022 No 12/03/2022 No 12/03/2022 Reliable internet access at home? Not on file 12/03/2022 Device with a working camera? Not on file Comments Unknown Sex and Gender Information Value Date Recorded Sex Assigned at Female 04/26/2022 12:48 PM EDT Legal Sex Female 12:46 PM EDT Gender Identity Female 04/26/2022 12:48 PM EDT Sexual Orientation Straight 04/26/2022 12 :48 PM EDT Plan of Treatment Health Maintenance Due Date Last Done Comments Adult Td,Tdap Booster 1974 LIPID PANEL 1974 DEPRESSION SCREENING 1986 SMOKING Hx and SMOKELESS TOB ACCO SCREENING 10/14/1987 HEPATITIS C SCREENING 1992 HIV ONE-TIME SCREENING (18-6 5 YEARS) 1992 PAP SMEAR 10/14/1995 MAMMOGRAM 2014 COLOGUARD 10/14/2019 COLONOSCOPY 10/14/2019 COLORECTAL CANCER SCREENING 10/14/2019 FIT TEST 10/14/2019 FOBT 10/14/2019 SIGMOIDOSCOPY 10/14/2019 VIRTUAL COLONOSCOPY 10/14/2019 COVID-19 VACCINE (1 - 2023-2 5 season) 2024 PNEUMOCOCCAL VACCINES (50+ y ears) (1 of 1 - PCV) 2024 ZOSTER VACCINES (1 of 2) 2024 HEPATITIS A VACCINES Aged Out No long er eligible based on patient's age to complete this topic HIB VACCINES Aged Out No longer eligi ble based on patient's age to complete this topic MENINGOCOCCAL VACCINES (ACWY) Aged Out No longer eligible based on patient's age to complete this topic MENINGOCOCCAL VACCINES (B) Aged Out N o longer eligible based on patient's age to complete this topic Medical Devices Not on file [place] [address] [place] [address] ONE CARE MEDICARE REPLACEMENT MEDICARE PART A & B [facility] ONE CARE MEDICARE REPLACEMENT MEDICARE PART A & B [facility] C[facility] MEDICARE REPLACEMENT MEDICARE PART A & B CARE MEDICARE REPLACEMENT MEDICARE PART A & B CARE MEDICARE REPLACEMENT MEDICARE PART A & B MEDICARE PART A & B [facility] ONE CARE MEDICARE REPLACEMENT MEDICARE PART A & B [place] [id number] MEDICARE PART A & B CARE MEDICARE REPLACEMENT MEDICARE PART A & B Care Teams Mold Cooler Relationship Specialty Start Date End Date Pcp, Unknown PCP - General 04/26/22 Additional Source Comments The information contained in this document represents components of the legal health record. It is not the complete legal health record.[facility]
--- OUTSIDE RECORDS SUMMARY | 2025-02-06 14:16 | XMS_ITS | Clinical Summary ---
Author Organization [facility] Address [address] [place] [address] Phone Care Team Providers Care Club Licensee Name Role Phone Alicia Lilly MD Primary Care Provider [phone] Allergies Active Allergy Reactions Criticality Noted Date Comments Penicillins Hives 12/16/2019 Medications QUEtiapine (SEROquel) 300 mg tablet Take 1-2 Tabs by mouth every evening. 09/10/2020 Active gabapentin (NEURONTIN) 300 mg capsule Take 2 Caps by mouth 2 times daily. 09/10/2020 Active methocarbamoL (ROBAXIN) 750 mg tablet Take 2 tablets (1,500 mg total) by mouth 4 (four) times a day if needed for muscle spasms for up to 10 days. 40 each 07/02/2024 Active Active Problems Problem Noted Date Diagnosed Date Chronic hepatitis C (CMS/HCC V24, CMS/HCC V28) 1 08/28/2023 History of drug use 06/27/2024 Elevated TSH 07/12/2020 Overview (06/27/2024): 7.01 on 06/28/2020 per discharge paperwork Hepatocellular injury 01/06/2020 Overview (06/27/2024): Per u/s 12/2019, no evidence of malignancy Bipolar disorder (CMS/HCC V24, CMS/HCC V28) 12/07 Hepatitis C 12/24/2019 Overview (06/27/2024): Chronic Hepatitis C Genotype 1A. Treatment started 02/11/2020 with Epclusa Take 1 tab daily for 12 weeks. End date 05/05/2020. Dx ~05/2019. 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 12/16/2019 PTSD (post-traumatic stress disorder) 12/24/2019 Immunizations Name Administration Dates Next Due Hepatitis A-Hepatitis B Adult (Twinrix) 18yo and older 06/17/2020 Surgical History Surgery Date Site/Laterality Comments TUBAL LIGATION PROCEDURE: HISTORICAL TUBAL LIGATION TONSILLECTOMY PROCEDURE: HISTORICAL TONSILLECTOMY Medical History Medical History Date Comments Chronic hepatitis C (CMS/HCC V24, CMS/HCC V28) DX:Chronic hepatitis C (HCC) History of drug use [...] 70 07/05/2024 6:46 AM EST Temperature 36.9 C (98.4 F) 07/05/2024 6:46 AM EST Respiratory Rate 18 07/05/2024 12:33 AM EST Oxygen Saturation 96% 07/05/2024 6:46 AM EST Inhaled Oxygen Concentration - - Weight 83.9 kg (185 lb) 07/04/2024 5:58 PM EST Height 162.6 cm (5' 4 ) 07/04/2024 5:58 PM EST Body Mass Index 31.76 07/04/2024 5:58 PM EST Plan of Treatment Health Maintenance Due Date Last Done Comments Breast Cancer Screening 1974 Pneumococcal Vaccine: 50+ Years (1 of 2 - PCV) 1993 Cervical Cancer Screening: P ap Smear 10/14/1995 Hepatitis B Vaccines (2 of 3 - Hep B Twinrix 3-dose series) 07/15/2020 06/17/2020 Colorectal Cancer Screening: Colonoscopy 06/12/2022 HIV Screening 06/12/2022 Medicare Annual Wellness Visit 06/12/2022 Social Influencers of Health Screening 06/12/2022 COVID-19 Vaccine (2 - 2023-2 5 season) 2024 07/07/2021 Depression Screening 07/09/2024 Zoster Vaccines (1 of 2) 2024 Cholesterol Screening (Lipid Panel) 12/23/2024 12/24/2019 Influenza Vaccine (#1) 2025 07/13/2022 Hypertension/CHF/CAD Annual BMP Blood Test 07/04/2025 07/04/2024, [...] patient's age to complete this topic Meningococcal B Vaccine Aged Out No l onger eligible based on patient's age to complete this topic RSV Immunization Patients Under 20 months Aged Out No longer eligible b ased on patient's age to complete this topic Varicella Vaccines Aged Out No longer eligible based on patient's age to complete this topic Procedures Procedure Name Priority Date/Time Associated Diagnosis Comments COMPREHENSIVE METABOLIC PANEL STAT 07/04/2024 9:50 PM EST HM HEPATITIS C SCREENING Routine 12/24/2019 LIPID PANEL Routine 12/24/2019 from Last 3 Months or Most Recently Relevant to Health Maintenance Results * Comprehensive metabolic panel (07/04/2024 9:50 PM EST) Sodium 133 133 - 145 mmol/L LAB CHEMISTRY METHOD 07/04/2024 10:17 PM [facility] Potassium 4.4 3.5 - 5.5 mmol/L LAB CHEMISTRY METHOD 07/04/2024 10:17 PM [facility] Chloride 102 96 - 110 mmol/L LAB CHEMISTRY METHOD 07/04/2024 10:17 PM [facility] CO2 25 21 - 32 mmol/L LAB CHEMISTRY METHOD 07/04/2024 10:17 PM [facility] Anion Gap 6 3 - 11 LAB CHEMISTRY METHOD 07/04/2024 10:17 PM [facility] Glucose 88 70 - 100 mg/dL LAB CHEMISTRY METHOD 07/04/2024 10:17 PM [facility] BUN 9 5 - 25 mg/dL LAB CHEMISTRY METHOD 07/04/2024 10:17 PM [facility] Creatinine 0.85 0.50 - 1.10 mg/dL LAB CHEMISTRY METHOD 07/04/2024 10:17 PM [facility] eGFR 84 >=60 mL/min/1. 73m2 LAB CHEMISTRY METHOD 07/04/2024 10:17 PM [facility] Comment:Calculation based on the Chronic Kidney Disease Epidemiology Collaboration (CKD-EPI) equation refit without adjustment for race. BUN/Creatinine Ratio 10.6 LAB CHEMISTRY METHOD 07/04/2024 10:17 PM [facility] Calcium 9.7 8.5 - 10.5 mg/dL LAB CHEMISTRY METHOD 07/04/2024 10:17 PM [facility] AST (SGOT) 12 10 - 42 unit/L LAB CHEMISTRY METHOD 07/04/2024 10:17 PM [facility] ALT (SGPT) 12 10 - 60 unit/L LAB CHEMISTRY METHOD 07/04/2024 10:17 PM [facility] Alkaline Phosphatase 89 42 - 121 unit/L LAB CHEMISTRY METHOD 07/04/2024 10:17 PM [facility] Total Protein 7.4 6.0 - 8.0 g/dL LAB CHEMISTRY METHOD 07/04/2024 10:17 PM [facility] Albumin 3.6 3.2 - 5.0 g/dL LAB CHEMISTRY METHOD 07/04/2024 10:17 PM [facility] Total Bilirubin 0.5 0.0 - 1.4 mg/dL LAB CHEMISTRY METHOD 07/04/2024 10:17 PM [facility] Blood Venous blood specimen / Unknown Venipuncture / Unknown 07/04/2024 9:50 PM EST 07/04/2024 9:50 PM EST Troy Mckeon DO LAB BLOOD ORDERABLES Final Result [facility] [address] [place] [address], * Hepatitis C Screening (12/24/2019) Pathologist [facility] Hepatitis C Screening abstracted Historical Provider HEALTH MAINTENANCE Final Result * (ABNORMAL) Lipid panel (12/24/2019) LDL/HDL Ratio 2 0 - 4 Triglycerides 105 0 - 150 mg/dL Cholesterol 209(A) 0 - 200 mg/dL HDL 91 >=40 mg/dL LDL Cholesterol 97 0 - 100 mg/dL Blood Venous blood specimen / Unknown us Historical Provider LAB BLOOD ORDERABLES Zoë zachariah Result from Last 3 Months or Most Recently Relevant to Health Maintenance Insurance [employer] MEDICARE Member Subscriber Plan / Payer (Ef fective 2021-Present) Name:Shelly Dale Relation to Subscriber:Self Name:Shelly Dale Payer ID:[id number] Group ID:[id number] Type:Not on file Address: [place] [address] [address] [id number] Care Teams Club Licensee Relationship Specialty Start Date End Date Alicia Lilly MD [address] [place] [id number] PCP - General Internal Medicine 04/26/22
--- OUTSIDE RECORDS SUMMARY | 2025-02-06 14:16 | XMS_ITS | Clinical Summary ---
Author Organization [facility] Address [address] [place], [place] [id number] Care Team Providers Care Early Childhood Aide Classroom Name Role Phone Unavailable Primary Care Provider [...] Hep B Twinrix 3-dose series) 07/15/2020 06/17/2020 Breast Cancer Screening (Mammogram) 2024 Shingrix-Zoster Vaccine (1 of 2) 2024 Influenza Vaccine (#1) 2025 RSV Ped < 20 months Aged Out No longe r eligible based on patient's age to complete this topic
[2025-02-06 14:17] VITALS: BMI 30.9
== END 2025-02-06 14:29 | disposition home or self-care (01) ==
LOC: HO.HOS 14:14
PROVIDERS: PCP Physician Assistant
DX: G56.03 Carpal tunnel syndrome, bilateral upper limbs (principal); G56.23 Lesion of ulnar nerve, bilateral upper limbs
CPT/HCPCS: 99213

== ENCOUNTER → 2025-02-06 14:13 | Outpatient (BNVA) | payer OTHER, SELFPAY | PROVIDERS: PCP Physician Assistant | DX: G56.03 Carpal tunnel syndrome, bilateral upper limbs (principal); G56.23 Lesion of ulnar nerve, bilateral upper limbs | CPT/HCPCS: 99212 ==

== ENCOUNTER 2025-02-09 12:20 | Outpatient (AMB) | payer OTHER, SELFPAY ==
[2025-02-09 12:27] VITALS: BP 134/70; BMI 30.1
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
--- OUTSIDE RECORDS SUMMARY | 2025-02-09 12:54 | XMS_ITS | Clinical Summary ---
Author Organization [facility] Address [address] [place] [phone] Phone Care Team Providers Care Assembler Fishing Floats Name Role Phone Pcp, Unknown Primary Care [...] topic Medical Devices Not on file [place] [place] [address] ONE CARE MEDICARE REPLACEMENT MEDICARE PART A & B [facility] ONE CARE MEDICARE REPLACEMENT MEDICARE PART A & B [facility] CARE MEDICARE REPLACEMENT MEDICARE PART A & B CARE MEDICARE REPLACEMENT MEDICARE PART A & B CARE MEDICARE REPLACEMENT MEDICARE PART A & B MEDICARE PART A & B [facility] ONE CARE MEDICARE REPLACEMENT MEDICARE PART A & B [place] [id number] MEDICARE PART A & B CARE MEDICARE REPLACEMENT MEDICARE PART A & B Care Teams Assembler Fishing Floats Relationship Specialty Start Date End Date Pcp, Unknown PCP - General 04/26/22 Additional Source Comments The information contained in this document represents components of the legal health record. It is not the complete legal health record.[facility]
--- OUTSIDE RECORDS SUMMARY | 2025-02-09 12:54 | XMS_ITS | Clinical Summary ---
Author Organization [facility] Address [address] [place], [place] [id number] Care Team Providers Care Jail Guard Name Role Phone Unavailable Primary Care Provider [...]
--- OUTSIDE RECORDS SUMMARY | 2025-02-09 12:54 | XMS_ITS | Clinical Summary ---
Author Organization [facility] Address [address] [place] [address] Phone Care Team Providers Care Industrial Furnace Fabricator Name Role Phone Alicia Lilly MD Primary Care Provider [phone] Allergies Active Allergy Reactions Criticality Noted Date [...] [facility] Comment:Calculation based on the Chronic Kidney [...] Mckeon DO LAB BLOOD ORDERABLES Final Result [facility] [address] [place] [address], * Hepatitis C Screening (12/24/2019) Pathologist [facility] Hepatitis C Screening abstracted Historical Provider HEALTH [...] ID:[id number] Group ID:ICO Type:Not on file Address: [place] [address] [place] [id number] Care Teams Industrial Furnace Fabricator Relationship Specialty Start Date End Date Alicia Lilly MD [address] [place] [id number] PCP - General Internal Medicine 04/26/22
== END 2025-02-09 12:50 | disposition home or self-care (01) ==
LOC: HO.HMCH 12:21
PROVIDERS: PCP Physician Assistant; Visit Provider Internal Medicine
DX: M25.561 Pain in right knee (principal); M25.511 Pain in right shoulder; M54.50 Low back pain, unspecified

== ENCOUNTER 2025-02-09 12:20 | Outpatient (REF) | payer OTHER, MEDICAID, SELFPAY ==
--- NOTE | ~2025-02-09 | XR_ITS ---
EXAMINATION: XR LUMBOSACRAL SPINE CLINICAL INFORMATION: M54.50 - Low back pain, unspecified COMPARISON: None available. TECHNIQUE: Three views of the lumbosacral spine. FINDINGS: There are 5 nonrib-bearing lumbar segments. Total hip replacement is present on the left. SI joints are unremarkable. T12-L1 through L2-3 demonstrates minimal disc space narrowing was small marginal osteophytes. L3-4: There is mild disc space narrowing and endplate osteophytes. L4-5: There is moderate disc space narrowing with pyrophosphate deposition in the disc, endplate sclerosis, and osteophytes. There is facet sclerosis and osteophytes. L5-S1: There is moderate to severe disc space narrowing with pyrophosphate deposition in the disc And endplate sclerosis and osteophytes. There is facet sclerosis and osteophytes. 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 Electronically signed by: Binh Ambriz MD 02/09/2025 01:37 PM EDT
--- NOTE | ~2025-02-09 | XR_ITS ---
EXAMINATION: XR SHOULDER, RIGHT CLINICAL INFORMATION: M25.511 - Pain in right shoulder COMPARISON: None available. TECHNIQUE: AP external rotation, Grashey, scapular Y, and axillary views of the right shoulder. FINDINGS: The AC joint is intact. There is minimal degenerative osteophyte formation. There is minimal pyrophosphate deposition in the superior acromioclavicular ligament over the acromion. Glenohumeral joint is intact. There is a small medial humeral osteophyte. There is very faint chondrocalcinosis in the glenohumeral joint and superior lateral humeral head. XR/XR shoulder RT min 2V IMPRESSION: CPPD arthropathy with very minimal secondary osteoarthritis. Electronically signed by: Binh Ambriz MD 02/09/2025 01:39 PM EDT
--- NOTE | ~2025-02-09 | XR_ITS ---
EXAMINATION: XR KNEE, RIGHT CLINICAL INFORMATION: M25.561 - Pain in right knee COMPARISON: None available. TECHNIQUE: AP and lateral views of the right knee. FINDINGS: There is no joint effusion. There is a moderate enthesophyte at the quadriceps attachment on patella tendon. There is mild narrowing of the medial and lateral joint space. There are moderate marginal osteophytes in the joint compartments. There is chondrocalcinosis visible in the medial and lateral joint compartments. XR/XR knee RT 2V IMPRESSION: Mild osteoarthritis secondary to CPPD arthropathy. Electronically signed by: Binh Ambriz MD 02/09/2025 01:34 PM EDT
== END 2025-02-09 12:21 | disposition home or self-care (01) ==
LOC: HO.XRAY 12:20
PROVIDERS: PCP Physician Assistant; Visit Provider Internal Medicine
DX: M25.561 Pain in right knee (principal); M25.511 Pain in right shoulder; M54.50 Low back pain, unspecified; Z13.31 Encounter for screening for depression
CPT/HCPCS: 72100; 73030; 73560; 96127

== ENCOUNTER → 2025-02-09 13:06 | Outpatient (BNV) | payer OTHER, SELFPAY | PROVIDERS: PCP Physician Assistant; Visit Provider Radiology Diagnostic Radiology | DX: M51.360 Other intervertebral disc degeneration, lumbar region with discogenic back pain only (principal); M25.511 Pain in right shoulder; M25.561 Pain in right knee | CPT/HCPCS: 72100; 73030; 73560 ==

== ENCOUNTER 2025-05-11 14:54 | Outpatient (AMB) | payer OTHER, SELFPAY ==
[2025-05-11 14:58] VITALS: BMI 30.1
--- NOTE | 2025-05-11 14:58 | A.OFFVIS_ITS ---
Vital Signs 05/11/25 14:58 Height 5 ft 5 in Weight 181 lb BMI 30.1 Intake Visit Reasons: OV-discuss cubital/Carpal tunnel release-B/L hand Intake Note: Shelly is a 49 year old right hand dominant female who presents today for Follow Up of her Bilateral Carpal & Cubital Syndrome. She was last evaluated on 02/06/25. At that time her symptoms were daily and intermittent, worse at night, worse on the left hand. Patient reports today she would like to proceed with surgery. EMG IMPRESSION 12/31/24: 1. This is an abnormal nerve conduction study. 2. There is electrodiagnostic evidence for bilateral ulnar neuropathy at the elbow. 3. There is electrodiagnostic evidence for right moderate-severe and left mild- moderate median neuropathy at the wrist, consistent with Carpal Tunnel Syndrome. Allergies Penicillins (PENICILLINS) Allergy (Unknown, Verified 05/11/25 14:59) UNKNOWN HPI HPI OV-discuss cubital/Carpal tunnel release-B/L hand: Details: Shelly is a 49 year old right hand dominant female who presents today for Follow Up of her Bilateral Carpal & Cubital Syndrome. She was last evaluated on 02/06/25. At that time her symptoms were daily and intermittent, worse at night, worse on the left hand. Patient reports today she would like to proceed with surgery. EMG IMPRESSION 12/31/24: 1. This is an abnormal nerve conduction study. 2. There is electrodiagnostic evidence for bilateral ulnar neuropathy at the elbow. 3. There is electrodiagnostic evidence for right moderate-severe and left mild- moderate median neuropathy at the wrist, consistent with Carpal Tunnel Syndrome. ON LICENSE OF [facility] Medical History Anxiety Hx of fracture of foot Hx of fracture of ankle Hx of substance abuse Hepatitis History of post traumatic stress disorder Hx of bipolar disorder Arthritis Surgical History History of tonsillectomy History of tubal ligation Family History Other Mental health disorder Social History Housing: Apartment Are you a primary home care companion to a significant other at home: No Do you presently have visiting nurse or other home services: No Alcohol intake: current Alcohol intake frequency: does not drink Comment: needs new walker and toilet seat Patient Tobacco Use Status: Current everyday Tobacco user Tobacco use type: Cigarette Cigarettes Per Day: 2 e-Cigarette/Vaping Use: Never Used Second Hand Smoke Exposure: Yes Substance Use Type: Former Substance User and Marijuana service: No Current occupational status: employed 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 Good APB muscle firing and good finger cross. Vascular: Capillary refill brisk. ROM: Patient can make a fist and extend all their digits. Skin: No lacerations or abrasions noted. General: No ecchymosis. No erythema or evidence of infection. Assessment & Plan Assessment & Plan (1) Bilateral carpal tunnel syndrome: Code(s): G56.03 - Carpal tunnel syndrome, bilateral upper limbs Category: Medical (2) Cubital tunnel syndrome, bilateral: Code(s): G56.23 - Lesion of ulnar nerve, bilateral upper limbs Category: Medical Plan 1. Bilateral carpal tunnel syndrome Bilateral cubital tunnel syndrome Symptoms intermittent, daily, worse at night I educated the patient about the condition. I discussed both operative and nonoperative treatment options. The patient would like to proceed with surgery. The risks and benefits of operative treatment were discussed with the patient and the patient wishes to proceed with surgery. These risks include, but are not limited to, risk of damage to blood vessels, nerves, tendons, infection, recurrence, incomplete relief of preoperative symptoms, persistent pain, possible need for further surgery, and the risks associated with regional blocks and/or anesthesia. Plan is to take the patient to the operating room at some point in the next few weeks for the following procedures: 1. Right cubital tunnel release under general 2. Right carpal tunnel release under general All of the preoperative paperwork including the consent was discussed today. All of the patient's questions were answered in the clinic today. The patient understands that they will be in contact with our surgical specialist to discuss scheduling their procedure. Patient denies diabetes, blood thinners, asthma, heart issues, lung issues, kidney issues, or current smoking. Coding Level of Care Code Est Pt Level 4 (35339) Diagnoses Bilateral carpal tunnel syndrome G56.03 Cubital tunnel syndrome, bilateral G56.23
== END 2025-05-11 15:20 | disposition home or self-care (01) ==
LOC: HO.HOS 14:55
PROVIDERS: PCP Physician Assistant
DX: G56.03 Carpal tunnel syndrome, bilateral upper limbs (principal); G56.23 Lesion of ulnar nerve, bilateral upper limbs
CPT/HCPCS: 99214

== ENCOUNTER → 2025-05-11 14:54 | Outpatient (BNVA) | payer OTHER, SELFPAY | PROVIDERS: PCP Physician Assistant | DX: G56.03 Carpal tunnel syndrome, bilateral upper limbs (principal); G56.23 Lesion of ulnar nerve, bilateral upper limbs; Z71.9 Counseling, unspecified | CPT/HCPCS: 99212 ==

== ENCOUNTER 2025-06-10 15:00 | Outpatient (RCR) | payer OTHER, MEDICAID, SELFPAY ==
--- NOTE | 2025-02-20 14:30 | MHC.PT.EP ---
[facility] [place] [facility] [place] [facility] [place] Office [address] Elfego Aguilar [address] [phone] F: [phone] F: [phone] F: [phone] F: [phone] Physical Therapy Plan of Care Date of Evaluation: 02/20/25 Date of Surgery: n/a Diagnosis: R shoulder pain Assessment: Patient is a 49 year old female presenting to PT with complaints of pain in her R shoulder. Pt reports onset of pain began about 1 month ago due to insidious onset. She presents today with impairments in pain, ROM, shoulder strength, posture. 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 Pt expresses assisted goal of reducing pain, and is motivated to work towards this in PT. Clinical presentation today is most consistent with signs and sx associated with R shoulder pain and pt will benefit from skilled PT 2 week x 4 weeks to address the following problems and impairments noted upon evaluation: pain, ROM, shoulder strength, posture. These problems limit the patient with the following functional activities: reaching, lifting, ADLs. The prescribed treatment plan of care is medically necessary. Co-morbidities of hx bipolar disorder, hepatitis were identified and taken into considerations of plan of care. Pt was educated on HEP, role of PT, prognosis, POC. Frequency and Duration: The patient will be seen 2 x week x 4 weeks Short Term Goals: Pt will demonstrate R shoulder ROM improved by 20 degrees for flexion and abd in 2 weeks. Pt will demonstrate improved R shoulder MMT strength by 1/3 grade in 2 weeks. Distribution Center Assistant Goals: Pt will demonstrate improved SPADI score by 13 points in 4 weeks for improved functional mobility. Pt will demonstrate ability reach and lift with min to no pain in 4 weeks for return to PLOF. Pt will demonstrate ability to complete ADLs with min to no pain in 4 weeks for return to PLOF. Treatment Plan: Modalities to reduce pain, spasms and effusion. Manual therapy to restore motion and function. Therapeutic exercise to improve strength and flexibility. Neuromuscular re-education for posture and balance. Therapeutic activities to return to functional activities of daily living. Electronically signed by: Sondra Lorie, PT, DPT, ATC Please sign and return to therapist. Thank you for your referral.
--- NOTE | 2025-06-10 15:44 | MHC.PT.DC ---
[facility] [place] [facility] [place] [facility] [place] Office [address] Elfego Aguilar [address] [phone] F: [phone] F: [phone] F: [phone] F: [phone] Physical Therapy Discharge Report Diagnosis: R shoulder pain, LBP Date of Surgery: n/a Date of Evaluation: 02/20/25 Date of Discharge: Treatments to Date: 10 Cancellations to Date: 3 No Shows to Date: 1 Discharge Status: Discharge Summary: 06/10/2025: Pt is demonstrating improvements in pain since start of care. She has made good progress towards her goals. She has an HEP which she reports she understands. At this time max benefits of PT have been provided and skilled PT is no longer indicated. I reviewed my recommendation to stay consistent with her HEP to maintain gains made in PT and she verbalizes understanding. She is in agreement with d/c today. 05/06;Pt performed all exs with c/o fatigue with bridges. 04/28; Pt pilar all exs with no c/o pain. 04/22; Pt had decreased tightness after stretches. Pt unable to do quadruped exs due to c/o CTS. 04/17/2025: Pt had been previously been being treated for her shoulder which is now feeling better. Her original PT order also included her low back and she would like to transition from being treated at her shoulder to her low back. Re-evaluation completed today with impairments noted in pain, lumbar ROM, hip strength, core strength, and tenderness to palpation which is affecting her ability to bend, lift, ambulate, work, and complete ADLs at her PLOF. Pt would benefit from skilled PT 2 x week x 4 weeks to address current impairments as outlined above and allow her to return to her PLOF. 04/01; Pt reports no pain. Pt wishes to start therapy for her back as she stated the referral was fro back and sh. Pt has 1/2 dionne for sh. 03/24; Pt had no c/o pain or click with exs. 03/10; Pt c/o CTS and elbow pain B arms. Pt pilar exs well. 03/03/2025: Strengthening and stretching as above. She does not complain of pain in the shoulder during the session. Demonstrates good form for the most part after initial demonstration. Updated HEP and printout provided for home. Patient is a 49 year old female presenting to PT with complaints of pain in her R shoulder. Pt reports onset of pain began about 1 month ago due to insidious onset. She presents today with impairments in pain, ROM, shoulder strength, posture. 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 Pt expresses intermediate accountant goal of reducing pain, and is motivated to work towards this in PT. Clinical presentation today is most consistent with signs and sx associated with R shoulder pain and pt will benefit from skilled PT 2 week x 4 weeks to address the following problems and impairments noted upon evaluation: pain, ROM, shoulder strength, posture. These problems limit the patient with the following functional activities: reaching, lifting, ADLs. The prescribed treatment plan of care is medically necessary. Co-morbidities of hx bipolar disorder, hepatitis were identified and taken into considerations of plan of care. Pt was educated on HEP, role of PT, prognosis, POC. Electronically signed by: Please sign and return to therapist. Thank you for your referral.
== END 2025-06-10 15:45 | disposition home or self-care (01) ==
LOC: HO.PTCHIC 15:00
PROVIDERS: PCP Physician Assistant; Visit Provider Internal Medicine
DX: M25.511 Pain in right shoulder (principal); M25.561 Pain in right knee; M54.50 Low back pain, unspecified
CPT/HCPCS: 97110; 97161; 97164

== ENCOUNTER 2025-07-07 10:07 | Outpatient (AMB) | payer OTHER, SELFPAY ==
[2025-07-07 10:11] VITALS: BMI 30.1
--- NOTE | 2025-07-07 10:11 | A.OFFVIS_ITS ---
Vital Signs 07/07/25 10:11 Height 5 ft 5 in Weight 181 lb BMI 30.1 Intake Visit Reasons: Preop RT cubital/CTR 07/16/25 AR Intake Note: Shelly is a 49 year old right hand dominant female who presents today for a pre-operative appointment for upcoming Right Cubital and Carpal Tunnel Release Booked for 07/16/25 with AR. IMPRESSION 12/31/24: 1. This is an abnormal nerve conduction study. 2. There is electrodiagnostic evidence for bilateral ulnar neuropathy at the elbow. 3. There is electrodiagnostic evidence for right moderate-severe and left mild- moderate median neuropathy at the wrist, consistent with Carpal Tunnel Syndrome. Allergies Penicillins (PENICILLINS) Allergy (Unknown, Verified 07/07/25 10:11) UNKNOWN HPI HPI Preop RT cubital/CTR 07/16/25 AR: Details: Shelly is a 49 year old right hand dominant female who presents today for a pre-operative appointment for upcoming Right Cubital and Carpal Tunnel Release Booked for 07/16/25 with AR. Patient reports no new medical diagnoses or medications since previous evaluation. Patient would like to still move forward with surgery. IMPRESSION 12/31/24: 1. This is an abnormal nerve conduction study. 2. There is electrodiagnostic evidence for bilateral ulnar neuropathy at the elbow. 3. There is electrodiagnostic evidence for right moderate-severe and left mild- moderate median neuropathy at the wrist, consistent with Carpal Tunnel Syndrome. COUNT INCLUDES THE [facility] Medical History Anxiety Hx of fracture of foot Hx of fracture of ankle Hx of substance abuse Hepatitis History of post traumatic stress disorder Hx of bipolar disorder Arthritis Surgical History History of tonsillectomy History of tubal ligation Family History Other Mental health disorder Social History Housing: Apartment Are you a primary child care associate to a significant other at home: No Do you presently have visiting nurse or other home services: No Alcohol intake: current Alcohol intake frequency: does not drink Comment: needs new walker and toilet seat Patient Tobacco Use Status: Current everyday Tobacco user Tobacco use type: Cigarette Cigarettes Per Day: 2 e-Cigarette/Vaping Use: Never Used Second Hand Smoke Exposure: Yes Substance Use Type: Former Substance User and Marijuana service: No Current occupational status: employed 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 Good APB muscle firing and good finger cross. Vascular: Capillary refill brisk. ROM: Patient can make a fist and extend all their digits. Skin: No lacerations or abrasions noted. General: No ecchymosis. No erythema or evidence of infection. Assessment & Plan Assessment & Plan (1) Bilateral carpal tunnel syndrome: Code(s): G56.03 - Carpal tunnel syndrome, bilateral upper limbs Category: Medical (2) Cubital tunnel syndrome, bilateral: Code(s): G56.23 - Lesion of ulnar nerve, bilateral upper limbs Category: Medical Plan 1. Bilateral carpal tunnel syndrome Bilateral cubital tunnel syndrome Symptoms intermittent, daily, worse at night I educated the patient about the condition. I discussed both operative and nonoperative treatment options. The patient would like to proceed with surgery. The risks and benefits of operative treatment were discussed with the patient and the patient wishes to proceed with surgery. These risks include, but are not limited to, risk of damage to blood vessels, nerves, tendons, infection, recurrence, incomplete relief of preoperative symptoms, persistent pain, possible need for further surgery, and the risks associated with regional blocks and/or anesthesia. Plan is to take the patient to the operating room at some point in the next few weeks for the following procedures: 1. Right cubital tunnel release under general 2. Right carpal tunnel release under general All of the preoperative paperwork including the consent was discussed today. All of the patient's questions were answered in the clinic today. The patient understands that they will be in contact with our surgical elastic knitter to discuss scheduling their procedure. Patient denies diabetes, blood thinners, asthma, heart issues, lung issues, kidney issues, or current smoking. Coding Level of Care Code Est Pt Level 4 (33437) Diagnoses Bilateral carpal tunnel syndrome G56.03 Cubital tunnel syndrome, bilateral G56.23
--- OUTSIDE RECORDS SUMMARY | 2025-07-07 13:24 | XMS_ITS | Clinical Summary ---
Author Organization [facility] Prior to 12/06/[address] [place] [address] Care Team Providers Care Director Of Marketing Communications Name Role Phone Unavailable Primary Care Provider [...]
--- OUTSIDE RECORDS SUMMARY | 2025-07-07 13:24 | XMS_ITS | Clinical Summary ---
Author Organization [facility] Address [address] [place] [address] Phone Care Team Providers Care Shift Mechanic Name Role Phone Alicia Lilly MD Primary Care Provider [phone] Allergies Active Allergy Reactions Criticality Noted Date [...] 12/16/2019 PTSD (post-traumatic stress disorder) 12/24/2019 Immunizations Immunization Administration Dates Next Due Hepatitis A-Hepatitis B [...] on file Sexual Orientation Not on file Last Filed Vital Signs [...] Last Done Comments Breast Cancer Screening 1974 Colorectal Cancer Screening: Colonoscopy 1974 Pneumococcal Vaccine: 50+ Years (1 of 2 - PCV) 1993 Cervical Cancer Screening: P ap Smear 10/14/1995 Hepatitis B Vaccines (2 of 3 - Hep B Twinrix 3-dose series) 07/15/2020 06/17/2020 HIV Screening 06/12/2022 Medicare Annual Wellness Visit 06/12/2022 Social Influencers of Health Screening 06/12/2022 Depression Screening 07/09/2024 Zoster Vaccines (1 of 2) 2024 Cholesterol Screening (Lipid Panel) 12/23/2024 12/24/2019 COVID-19 Vaccine (2 - 2024-2 6 season) 2025 07/07/2021 Influenza Vaccine (#1) 2025 07/13/2022 Hypertension/CHF/CAD Annual BMP Blood Test 07/04/2025 07/04/2024, 07/02/2024, 12/24/2019 DTaP,Tdap,and Td Vaccines (3 - Td or Tdap) 06/15/2032 06/15/2022, 10/02/2021 RSV Immunization Adult Patients (1 - 1-dose 75+ series) 2049 Hepatitis C Screening Completed 12/24/2019 Hepatitis A [...] Comprehensive metabolic panel (07/04/2024 9:50 PM EST) Pathologist [facility] Sodium 133 133 - 145 mmol/L LAB CHEMISTRY METHOD 07/04/2024 10:[address] [facility] Potassium 4.4 3.5 - 5.5 mmol/L LAB CHEMISTRY METHOD 07/04/2024 10:[address] [facility] Chloride 102 96 - 110 mmol/L LAB CHEMISTRY METHOD 07/04/2024 10:[address] [facility] CO2 25 21 - 32 mmol/L LAB CHEMISTRY METHOD 07/04/2024 10:[address] [facility] Anion Gap 6 3 - 11 LAB CHEMISTRY METHOD 07/04/2024 10:[address] [facility] Glucose 88 70 - 100 mg/dL LAB CHEMISTRY METHOD 07/04/2024 10:[address] [facility] BUN 9 5 - 25 mg/dL LAB CHEMISTRY METHOD 07/04/2024 10:[address] [facility] Creatinine 0.85 0.50 - 1.10 mg/dL LAB CHEMISTRY METHOD 07/04/2024 10:[address] [facility] eGFR 84 >=60 mL/min/1. 73m2 LAB CHEMISTRY METHOD 07/04/2024 10:[address] [facility] Comment:Calculation based on the Chronic Kidney Disease Epidemiology Collaboration (CKD-EPI) equation refit without adjustment for race. BUN/Creatinine Ratio 10.6 LAB CHEMISTRY METHOD 07/04/2024 10:[address] [facility] Calcium 9.7 8.5 - 10.5 mg/dL LAB CHEMISTRY METHOD 07/04/2024 10:[address] [facility] AST (SGOT) 12 10 - 42 unit/L LAB CHEMISTRY METHOD 07/04/2024 10:[address] [facility] ALT (SGPT) 12 10 - 60 unit/L LAB CHEMISTRY METHOD 07/04/2024 10:[address] [facility] Alkaline Phosphatase 89 42 - 121 unit/L LAB CHEMISTRY METHOD 07/04/2024 10:[address] [facility] Total Protein 7.4 6.0 - 8.0 g/dL LAB CHEMISTRY METHOD 07/04/2024 10:[address] [facility] Albumin 3.6 3.2 - 5.0 g/dL LAB CHEMISTRY METHOD 07/04/2024 10:[address] [facility] Total Bilirubin 0.5 0.0 - 1.4 mg/dL LAB CHEMISTRY METHOD 07/04/2024 10:[address] [facility] Blood Venous blood specimen / Unknown Venipuncture / Unknown 07/04/2024 9:50 PM EST 07/04/2024 9:50 PM EST Troy Mckeon DO LAB BLOOD ORDERABLES Final Result [facility] [address] [place] [address], * Hepatitis C Screening (12/24/2019) Pathologist [facility] Hepatitis C Screening abstracted Historical Provider HEALTH MAINTENANCE Final Result * (ABNORMAL) Lipid panel (12/24/2019) Pathologist [facility] LDL/HDL Ratio 2 0 - 4 Triglycerides [...] ID:[id number] Group ID:ICO Type:Not on file Address: [place] [address] [place] [address] Care Teams Shift Mechanic Relationship Specialty Start Date End Date Alicia Lilly MD [address] [place] [id number] PCP - General Internal Medicine 04/26/22
--- OUTSIDE RECORDS SUMMARY | 2025-07-07 13:24 | XMS_ITS | Clinical Summary ---
Author Organization [facility] Address [address] [place] [id number] Phone Care Team Providers Care Sulfur Burner Name Role Phone Pcp, Unknown Primary Care [...] FOBT 10/14/2019 SIGMOIDOSCOPY 10/14/2019 VIRTUAL COLONOSCOPY 10/14/2019 PNEUMOCOCCAL VACCINES (50+ y ears) (1 of 1 - PCV) 2024 ZOSTER VACCINES (1 of 2) 2024 INFLUENZA VACCINE (#1) 2025 COVID-19 VACCINE (1 - 2024-2 6 season) 2025 RSV VACCINE (1 - 1-dose 75+ series) 2049 HEPATITIS A VACCINES Aged Out No long [...] topic Medical Devices Not on file Insurance ONE CARE MEDICARE REPLACEMENT [facility] MEDICARE PART A & B MEDICARE PART A & B CARE MEDICARE REPLACEMENT Member Subscriber Plan / Payer (Ef fective 2021-Present) Name:Shelly Dale Relation to Subscriber:Self Name:SuyapaShelly Payer ID:[id number] (NAIC) Group ID:[id number] Type:Medicare Address: [address] [facility] MEDICARE PART A & B [place] [facility] MEDICARE PART A & B CARE MEDICARE REPLACEMENT MEDICARE PART A & B CARE MEDICARE REPLACEMENT MEDICARE PART A & B CARE MEDICARE REPLACEMENT MEDICARE PART A & B ([address] ONE CARE MEDICARE REPLACEMENT [place] [address] MEDICARE PART A & B [facility] ONE CARE MEDICARE REPLACEMENT MEDICARE PART A & B Care Teams Sulfur Burner Relationship Specialty Start Date End Date Pcp, Unknown PCP - General 04/26/22 Additional Source Comments The information contained in this document represents components of the legal health record. It is not the complete legal health record.[facility]
== END 2025-07-07 10:31 | disposition home or self-care (01) ==
LOC: HO.HOS 10:07
PROVIDERS: PCP Physician Assistant
DX: G56.03 Carpal tunnel syndrome, bilateral upper limbs (principal); G56.23 Lesion of ulnar nerve, bilateral upper limbs
CPT/HCPCS: 99024

== ENCOUNTER → 2025-07-07 10:07 | Outpatient (BNVA) | payer OTHER, SELFPAY | PROVIDERS: PCP Physician Assistant | DX: G56.03 Carpal tunnel syndrome, bilateral upper limbs (principal); G56.23 Lesion of ulnar nerve, bilateral upper limbs | CPT/HCPCS: 99212 ==